=== PATIENT | female | born 1995 | race African-American/Black ===

== ENCOUNTER → 2018-06-23 | Outpatient (CLI) | payer OTHER | END | disposition home or self-care (01) | LOC: LABWHC1 14:38 | PROVIDERS: ATTEND Obstetrics & Gynecology | DX: Z34.81 Encounter for supervision of other normal pregnancy, first trimester (principal) | CPT/HCPCS: 36415; 84702 ==

== ENCOUNTER 2018-06-30 12:09 | Emergency (ER) | payer OTHER ==
[2018-06-30] MEDS ORDERED: SODIUM CHLORIDE 0.9% 500 ML IV STA (13:00)
[2018-06-30] MEDS ORDERED: SODIUM CHLORIDE 0.9% 1,000 ML IV STA (13:00)
[2018-06-30] MEDS ORDERED: PYRIDOXINE 100 MG/ML 1 ML VIAL IVP STA (13:00)
--- NOTE | 2018-06-30 13:09 | ED ---
Nausea/Vomiting/Diarrhea HPI - General Chief complaint: Nausea/Vomiting/Diarrhea Stated complaint: APX 6 WEEKS PREG, VOMITING Time Seen by Provider: 06/30/18 12:41 Source: patient Mode of arrival: ambulatory Limitations: no limitations - History of Present Illness Initial comments: 22-year-old female patient who is approximately 6 weeks presents to the emergency department today for complaints of vomiting. Patient states that she began vomiting at 10 PM last night and has had multiple episodes since then. Patient states initially the vomitus contained food particles but now is bilious. Patient states that she is having some upper abdominal muscle soreness. Denies any lower abdominal cramping or pain. Denies any vaginal bleeding or discharge. Patient denies any ingestion of questionable foods or recent travel. Denies any constipation or diarrhea with this. Patient is A1, has established with Dr. Segura. Patient denies any recent rash, fever, chills, shortness breath, chest pain, back pain, numbness, tingling, dizziness, weakness, hematuria, dysuria, urinary urgency, urinary frequency, headache, visual changes, or any other complaints. - Related Data Home Medications Medication Instructions Recorded Confirmed Rbs-Amzc-Eejnh Acid 1 cap PO HS 06/30/18 06/30/18 [-U Capsule (formulary)] Previous Rx's Medication Instructions Recorded Pyridoxine HCl (Vitamin B6) 100 mg PO HS #30 tablet 06/30/18 [Vitamin B-6] Allergies Allergy/AdvReac Type Severity Reaction Status Date / Time No Known Drug Allergies Allergy Unknown Verified 06/30/18 13:34 Review of Systems ROS Statement: Those systems with pertinent positive or pertinent negative responses have been documented in the HPI. ROS Other: All systems not noted in ROS Statement are negative. Past Medical History Past Medical History: No Reported History History of Any Multi-Drug Resistant Organisms: None Reported Past Surgical History: No Surgical Hx Reported Past Psychological History: No Psychological Hx Reported Smoking Status: Never smoker Past Alcohol Use History: None Reported Past Drug Use History: None Reported General Exam Limitations: no limitations General appearance: alert, in no apparent distress, other (This is a well- developed, well-nourished adult female patient in no acute distress. Vital signs upon presentation are temperature 98.5F, pulse 79, respirations 18, blood pressure 111/62, pulse ox 97% on room air.) Eye exam: Present: normal appearance, PERRL, EOMI. Absent: scleral icterus, conjunctival injection, periorbital swelling ENT exam: Present: normal exam, normal oropharynx, mucous membranes moist Respiratory exam: Present: normal lung sounds bilaterally. Absent: respiratory distress, wheezes, rales, rhonchi, stridor Cardiovascular Exam: Present: regular rate, normal rhythm, normal heart sounds. Absent: systolic murmur, diastolic murmur, rubs, gallop, clicks GI/Abdominal exam: Present: soft, normal bowel sounds. Absent: distended, tenderness, guarding, rebound, rigid Neurological exam: Present: alert, oriented X3, CN II-XII intact Psychiatric exam: Present: normal affect, normal mood Skin exam: Present: warm, dry, intact, normal color. Absent: rash Course Vital Signs 06/30/18 06/30/18 06/30/18 12:24 14:14 15:36 Temperature 98.5 F 98.2 F 97.9 F Pulse Rate 79 98 85 Respiratory 18 17 18 Rate Blood Pressure 111/62 95/54 99/56 O2 Sat by Pulse 97 100 100 Oximetry 06/30/18 15:42 Temperature 97.9 F Pulse Rate 85 Respiratory 18 Rate Blood Pressure 99/56 O2 Sat by Pulse 100 Oximetry Medical Decision Making - Medical Decision Making 22-year-old female patient presented to the emergency department today for evaluation of vomiting since 10 PM last night. Patient is 6 weeks . Physical examination is unremarkable, abdomen soft and nontender. Patient denies any lower abdominal pain or cramping. Labs reviewed and did reveal an elevated white blood cell count at 13.4. Urinalysis did show cloudy appearance with 1+ protein, 4+ ketones, positive nitrite, 8 white blood cells, 6 squamous epithelial cells, few bacteria, and many mucus. Patient did receive IV fluids equal to 1500 mL of normal saline here in the emergency department. She did receive vitamin B6, continued have some nausea so we did administer Reglan here in the department. Upon reevaluation patient is feeling better. She will be given up her prescription for vitamin B6 treated for urinary tract infection with Keflex. She is instructed to follow-up with her [employer]M D[employer] for recheck as soon as possible. Return parameters were discussed in detail and she verbalizes understanding and agrees with this plan. - Lab Data Result diagrams: 06/30/18 13:08 06/30/18 13:08 Lab Results 06/30/18 06/30/18 06/30/18 Range/Units 13:08 13:08 13:17 WBC 13.4 H (4.0-11.0) k/uL RBC 4.58 (3.80-5.40) m/uL Hgb 13.2 (11.4-16.0) gm/dL Hct 41.2 (34.0-46.0) % MCV 89.9 (80.0-100.0) fL MCH 28.8 (25.0-35.0) pg MCHC 32.1 (31.0-37.0) g/dL RDW 13.7 (11.5-15.5) % Plt Count 272 (150-450) k/uL Neutrophils % 83 % Lymphocytes % 11 % Monocytes % 3 % Eosinophils % 1 % Basophils % 0 % Neutrophils # 11.1 H (1.3-7.7) k/uL Lymphocytes # 1.5 (1.0-4.8) k/uL Monocytes # 0.4 (0-1.0) k/uL Eosinophils # 0.2 (0-0.7) k/uL Basophils # 0.0 (0-0.2) k/uL Sodium 140 (137-145) mmol/L Potassium 3.7 (3.5-5.1) mmol/L Chloride 104 (98-107) mmol/L Carbon Dioxide 22 (22-30) mmol/L Anion Gap 14 mmol/L BUN 9 (7-17) mg/dL Creatinine 0.54 (0.52-1.04) mg/dL Est GFR (CKD-EPI)AfAm >90 (>60 ml/min/1.73 sqM) Est GFR (CKD-EPI)NonAf >90 (>60 ml/min/1.73 sqM) Glucose 73 L (74-99) mg/dL Calcium 9.2 (8.4-10.2) mg/dL Total Bilirubin 0.7 (0.2-1.3) mg/dL AST 21 (14-36) U/L ALT 11 (9-52) U/L Alkaline Phosphatase 46 (38-126) U/L Total Protein 7.7 (6.3-8.2) g/dL Albumin 4.5 (3.5-5.0) g/dL Amylase 60 (30-110) U/L Lipase 80 (23-300) U/L Urine Color Yellow Urine Appearance Cloudy H (Clear) Urine pH 6.0 (5.0-8.0) Ur Specific [place] 1.025 (1.001-1.035) Urine Protein 1+ H (Negative) Urine Glucose (UA) Negative (Negative) Urine Ketones 4+ H (Negative) Urine Blood Negative (Negative) Urine Nitrite Positive H (Negative) Urine Bilirubin Negative (Negative) Urine Urobilinogen <2.0 (<2.0) mg/dL Ur Leukocyte Esterase Negative (Negative) Urine RBC <1 (0-5) /hpf Urine WBC 8 H (0-5) /hpf Ur Squamous Epith Cells 6 H (0-4) /hpf Urine Bacteria Few H (None) /hpf Urine Mucus Many H (None) /hpf Disposition Clinical Impression: Morning sickness Disposition: HOME SELF-CARE Condition: Good Instructions: Nausea and Vomiting in (ED) Additional Instructions: 22-year-old female patient presents to the emergency department today for evaluation of nausea and vomiting since last night around 10 PM. Physical examination is unremarkable. Abdomen was soft and nontender. Labs reviewed and were unremarkable however urinalysis did show 4+ ketones and nitrite positive urinary tract infection. We did culture the urine. She will be treated with Keflex for this. She'll be given a prescription for vitamin B6 to take at night before bed. She is instructed to follow-up with her [employer]M D[employer]TER for recheck as soon as possible. Return parameters were discussed in detail. She verbalizes understanding and agrees with this plan. Prescriptions: Pyridoxine HCl (Vitamin B6) [Vitamin B-6] 100 mg PO HS #30 tablet Is patient prescribed a controlled substance at d/c from ED?: No Referrals: Rosalino Thurston MD [Primary Care Provider] - 1-2 days Rishi Segura DO [Doctor of Osteopathic Medicine] - 1-2 days Time of Disposition: 14:38
[2018-06-30 13:22] LABS: Basophils % (A) 0 %; Eosinophils # (A) 0.2 k/uL (0-0.7); Eosinophils % (A) 1 %; HCT 41.2 % (34.0-46.0); HGB 13.2 gm/dL (11.4-16.0); Lymphocytes # (A) 1.5 k/uL (1.0-4.8); Lymphocytes % (A) 11 %; MCH 28.8 pg (25.0-35.0); MCHC 32.1 g/dL (31.0-37.0); MCV 89.9 fL (80.0-100.0); Monocytes # (A) 0.4 k/uL (0-1.0); Monocytes % (A) 3 %; Neutrophils # (A) 11.1 k/uL (1.3-7.7); Neutrophils % (A) 83 %; Platelet Count 272 k/uL (150-450); RBC 4.58 m/uL (3.80-5.40); RDW 13.7 % (11.5-15.5); WBC 13.4 k/uL (4.0-11.0)
[2018-06-30 13:28] LABS: ALT 11 U/L (9-52); AST 21 U/L (14-36); Albumin 4.5 g/dL (3.5-5.0); Alkaline Phosphatase 46 U/L (38-126); Amylase 60 U/L (30-110); Anion Gap 14 mmol/L; Blood Urea Nitrogen 9 mg/dL (7-17); Calcium 9.2 mg/dL (8.4-10.2); Carbon Dioxide 22 mmol/L (22-30); Chloride 104 mmol/L (98-107); Glucose 73 mg/dL (74-99); Lipase 80 U/L (23-300); Potassium 3.7 mmol/L (3.5-5.1); Sodium 140 mmol/L (137-145); Total Bilirubin 0.7 mg/dL (0.2-1.3); Total Protein 7.7 g/dL (6.3-8.2)
[2018-06-30 13:32] LABS: Appearance,Urine Cloudy (Clear); Bacteria,Urine Few /hpf; Bilirubin,Urine Negative (Negative); Blood,Urine Negative (Negative); Color,Urine Yellow; Glucose,Urine (UA) Negative (Negative); Ketones,Urine 4+ (Negative); Leukocyte Esterase,Urine Negative (Negative); Mucus,Urine Many /hpf; Nitrite,Urine Positive (Negative); Protein,Urine 1+ (Negative); RBC,Urine <1 /hpf (0-5); Specific Gravity,Urine 1.025 (1.001-1.035); Squamous Epithelial Cell,Urine 6 /hpf (0-4); Urobilinogen,Urine <2.0 mg/dL (<2.0); WBC,Urine 8 /hpf (0-5)
[2018-06-30] MEDS ORDERED: CEPHALEXIN 500 MG CAP PO STA (13:54)
[2018-06-30] MEDS ORDERED: METOCLOPRAMIDE 5 MG/ML 2 ML VIAL IVP STA (14:02)
[2018-06-30] MEDS ORDERED: diphenhydrAMINE 50 MG/ML 1 ML VIAL IVP STA (14:02)
[2018-06-30 15:37] VITALS: BP 99/56; PULSE 85; RESP 18; TEMP 97.9
== END 2018-06-30 15:42 | disposition home or self-care (01) ==
LOC: EC 12:09
DX: O21.9 Vomiting of pregnancy, unspecified (principal); O23.41 Unspecified infection of urinary tract in pregnancy, first trimester; O99.111 Other diseases of the blood and blood-forming organs and certain disorders involving the immune mechanism complicating pregnancy, first trimester; D72.829 Elevated white blood cell count, unspecified; Z3A.01 Less than 8 weeks gestation of pregnancy
CPT/HCPCS: 36415; 80053; 82150; 83690; 85025; 81001; 87086; 99284; 96374; 96375 ×2; 96361 ×2; J1200; J3415; J2765

== ENCOUNTER → 2018-07-17 | Outpatient (CLI) | payer OTHER ==
--- NOTE | 2018-07-20 13:32 | US ---
EXAMINATION TYPE: Transabdominal DATE OF EXAM: 01/13/18 COMPARISON: NONE CLINICAL HISTORY: Z36 Confirm Dates. EXAM PERFORMED: Transabdominal (TA) EXAM MEASUREMENTS: GESTATIONAL AGE / DATING Physician Established: Not yet established Dates by LMP: LMP unknown Dates by First Scan: No previous this is first scan EDC: Dates by Current Scan for: (8 weeks/1 days) EDC: 02/25/19 MATERNAL ANATOMY Uterus: 9.6 x 6.4 x 6.1cm Right Ovary: 3.7 x 1.4 x 1.7c, Left Ovary: 3.2 x 2.0 x 1.9 Post CDS / Adnexa: wnl Presence of free fluid: small amount in cul de sac GESTATION / SURVEY CRL: 1.7 (8 weeks/ 1 days) Yolk Sac (normal less than 6mm): 3mm Heart Rate: 170 bpm Rhythm: Normal IUP: Live IUP Date of LMP: unknown Beta HcG (if available): Not available at this time IMPRESSION: Single live intrauterine with a heart rate of 170 bpm and sonographic age of 8 weeks and 1 day with estimated date of delivery of 02/25/2019.
== END | disposition home or self-care (01) ==
LOC: RADUSWWP 14:57
PROVIDERS: ATTEND Obstetrics & Gynecology
DX: Z36.89 Encounter for other specified antenatal screening (principal)
CPT/HCPCS: 76801

== ENCOUNTER → 2018-09-07 | Outpatient (CLI) | payer OTHER ==
[2018-09-07 12:09] LABS: HGB 12.1 gm/dL (11.4-16.0); MCH 29.9 pg (25.0-35.0); MCHC 32.6 g/dL (31.0-37.0); MCV 91.6 fL (80.0-100.0); Mean Platelet Volume 7.3; Platelet Count 198 k/uL (150-450); RBC 4.04 m/uL (3.80-5.40); RDW 13.7 % (11.5-15.5); WBC 10.5 k/uL (3.8-10.6)
[2018-09-07 12:25] LABS: Appearance,Urine Clear (Clear); Bilirubin,Urine Negative (Negative); Blood,Urine Negative (Negative); Color,Urine Yellow; Glucose,Urine (UA) Negative (Negative); Ketones,Urine Negative (Negative); Leukocyte Esterase,Urine Negative (Negative); Nitrite,Urine Negative (Negative); Protein,Urine Negative (Negative); Specific Gravity,Urine 1.015 (1.001-1.035); Urobilinogen,Urine <2.0 mg/dL (<2.0)
[2018-09-07 17:15] LABS: HIV 1 AB Non-Reactive (Non-Reactive); HIV AB P24 Non-Reactive (Non-Reactive); HIV P24 AG Non-Reactive (Non-Reactive)
[2018-09-08 02:17] LABS: Toxoplasma Antibody (IgG) <3.0 IU/mL (<7.2); Toxoplasma Antibody (IgM) 4.1 AU/mL (<8.0)
[2018-09-08 13:06] LABS: C. trachomatis,PCR Negative (Neg,Equiv); Chlamydia trachomatis Source Urine; N. gonorrhoeae,PCR Negative (Neg,Equiv); Neisseria Source Urine
== END | disposition home or self-care (01) ==
LOC: LABWHC1 10:59
PROVIDERS: ATTEND Obstetrics & Gynecology
DX: Z34.81 Encounter for supervision of other normal pregnancy, first trimester (principal); Z3A.00 Weeks of gestation of pregnancy not specified
CPT/HCPCS: 36415; 81003; 82565; 82947; 85027; 86762; 86777; 86778; 86780; 86850; 86900; 86901; 87086; 87340; 87390; 87491; 87591

== ENCOUNTER → 2018-09-16 | Outpatient (CLI) | payer OTHER ==
[2018-09-17 09:49] LABS: Alpha Fetoprotein (M.O.M) 0.85; B-HCG (M.O.M.) 0.86; Gestational Age (days) 3; Human Chorionic Gonadotropin 24.7 IU/mL; Inhibin A (M.O.M.) 1.26; Maternal Age at EDD (Yrs) 21; Smoker No; Unconjugated Estriol (M.O.M.) 1.11
== END | disposition home or self-care (01) ==
LOC: LABWHC1 11:31
PROVIDERS: ATTEND Obstetrics & Gynecology
DX: Z34.02 Encounter for supervision of normal first pregnancy, second trimester (principal); Z3A.00 Weeks of gestation of pregnancy not specified
CPT/HCPCS: 36415; 82105; 82677; 84702; 86336

== ENCOUNTER 2019-02-15 06:00 | Inpatient (IN) | payer OTHER ==
[2019-02-15] MEDS ORDERED: LIDOCAINE 0.5% (PF) 5 MG/ML (50 ML SDV) SQ PRN (07:19)
[2019-02-15] MEDS ORDERED: TERBUTALINE 1 MG/ML VIAL SQ PRN (07:19)
[2019-02-15] MEDS ORDERED: METHYLERGONOVINE 0.2 MG/ML 1 ML AMP IM PRN (07:19)
[2019-02-15] MEDS ORDERED: CARBOPROST TROMETHAMINE 250 MCG/ML 1 ML AMP IM PRN (07:19)
[2019-02-15] MEDS ORDERED: OXYTOCIN 10 UNIT/ML 1 ML VIAL IM PRN (07:19)
[2019-02-15 07:25] VITALS: BMI 23.9
[2019-02-15] MEDS ORDERED: OXYTOCIN 30 UNITS/500 ML NS 30 UNIT in SALINE 1 500ML.BAG IV SCH (07:30)
[2019-02-15 07:37] LABS: Basophils % (A) 0 %; Eosinophils # (A) 0.1 k/uL (0-0.7); Eosinophils % (A) 1 %; HCT 32.3 % (34.0-46.0); HGB 10.2 gm/dL (11.4-16.0); Hypochromasia Marked; Lymphocytes # (A) 1.8 k/uL (1.0-4.8); Lymphocytes % (A) 22 %; MCH 25.1 pg (25.0-35.0); MCHC 31.5 g/dL (31.0-37.0); MCV 79.7 fL (80.0-100.0); Mean Platelet Volume 7.5; Monocytes # (A) 0.5 k/uL (0-1.0); Monocytes % (A) 6 %; Neutrophils # (A) 5.2 k/uL (1.3-7.7); Neutrophils % (A) 67 %; Platelet Count 258 k/uL (150-450); RBC 4.06 m/uL (3.80-5.40); RDW 14.6 % (11.5-15.5); WBC 7.9 k/uL (3.8-10.6)
[2019-02-15] MEDS: LACTATED RINGERS 1,000 ML IV SCH ×4 (07:37→13:24)
[2019-02-15] MEDS ORDERED: fentaNYL (PF) 50 MCG/ML 5 ML AMP ONE (12:25)
[2019-02-15] MEDS ORDERED: ROPIVACAINE 5MG/ML 20ML VIAL ONE (12:25)
[2019-02-15] MEDS ORDERED: SODIUM CHLORIDE 0.9% 100 ML BAG ONE (12:25)
[2019-02-15] MEDS ORDERED: HYDROCORTISONE 2.5% RECTAL CREAM 30 GM TUBE RECTAL PRN (16:18)
[2019-02-15] MEDS ORDERED: BENZOCAINE/MENTHOL SPRAY 1 GM/SPRAY AEROSOL TOPICAL PRN (16:18)
[2019-02-15] MEDS ORDERED: SIMETHICONE 80 MG CHEWABLE PO PRN (16:18)
[2019-02-15] MEDS ORDERED: diphenhydrAMINE 25 MG CAP PO PRN (16:18)
[2019-02-15] MEDS ORDERED: diphenhydrAMINE 50 MG/ML 1 ML VIAL IVP PRN ×2 (16:18)
[2019-02-15] MEDS ORDERED: LANOLIN CREAM 5 GM TUBE TOPICAL PRN (16:18)
[2019-02-15] MEDS ORDERED: diphenhydrAMINE 50 MG CAP PO PRN (16:18)
[2019-02-15] MEDS ORDERED: WITCH HAZEL 1 EACH MED..PAD TOPICAL PRN (16:18)
[2019-02-15] MEDS ORDERED: ZOLPIDEM 5 MG TAB PO PRN (16:18)
[2019-02-15] MEDS ORDERED: ACETAMINOPHEN TAB 325 MG TAB PO PRN (16:18)
--- NOTE | 2019-02-15 16:21 | P.HPOB ---
History of Present Illness H&P Date: 02/15/19 Chief Complaint: Intrauterine at term Patient is a 23-year-old G 3 P1 at 39 weeks gestation arrives for induction of labor. Her Precis course has otherwise been unremarkable and she is feeling well at this time. She was initially dilated to 2 cm 50% effaced -2 station, artificial rupture membranes was performed and clear fluid is noted. There is category 1 tracing at the outset of the labor process. Pitocin augmentation of labor was planned and an epidural was planned for analgesia. Pertinent labs could O+ blood type with rubella being indeterminate, RPR/hepatitis B surface antigen/HIV were all negative. On physical exam vital signs are stable and afe brile. Heart regular, lungs clear, extremities without pain. Abdomen soft and nontender. Gravid uterus is noted. Assessment intrauterine at term. Plan induction of labor. Past Medical History Past Medical History: No Reported History History of Any Multi-Drug Resistant Organisms: None Reported Past Surgical History: No Surgical Hx Reported Past Anesthesia/Blood Transfusion Reactions: No Reported Reaction Past Psychological History: No Psychological Hx Reported Smoking Status: Never smoker Past Alcohol Use History: None Reported Past Drug Use History: None Reported - Past Family History Mother Family Medical History: No Reported History Medications and Allergies Home Medications Medication Instructions Recorded Confirmed Type Bbw-Tjwx-Ottfk Acid 1 cap PO HS 06/30/18 02/15/19 History [-U Capsule (formulary)] Allergies Allergy/AdvReac Type Severity Reaction Status Date / Time No Known Drug Allergies Allergy Unknown Verified 09/11/18 14:35 Exam Osteopathic Statement: *. No significant issues noted on an osteopathic structural exam other than those noted in the History and Physical/Consult. Vital Signs Temp Pulse Resp BP 02/15/19 07:08 98.4 F 73 16 115/69 Intake and Output 02/15/19 02/15/19 02/15/19 06:59 14:59 22:59 Other: Weight 61.235 kg Results Result Diagrams: 02/15/19 07:20 Abnormal Lab Results - Last 24 Hours (Table) 02/15/19 Range/Units 07:20 Hgb 10.2 L (11.4-16.0) gm/dL Hct 32.3 L (34.0-46.0) % MCV 79.7 L (80.0-100.0) fL
--- NOTE | 2019-02-15 16:22 | P.PROBDLV ---
Vaginal Delivery Note - . Vaginal Delivery Note: Patient progressed complete and pushing with spontaneous vaginal delivery of a viable male over an intact perineum. Baby was delivered from left occiput anterior position. Once baby's head was delivered the anterior shoulder was attempted to be delivered from underneath the pubic sepsis, however she at that point stopped pushing so I did place my fingers in the posterior vagina grasping underneath the axilla and helping to rotate the baby slightly under the pubic bone followed by easy delivery of the baby. Mouth nares were then bulb suctioned and baby was placed on mother's abdomen where the umbilical cord was clamped cut usual fashion. Nursery personnel was then present to assume care. Placenta was then delivered intact Pitocin was added to the IV. scores weight are pending, however baby is stable following delivery. Cord blood was collected for O+ blood type.
[2019-02-15] MEDS ORDERED: OXYTOCIN 20 UNITS/1000 ML NS 1,000 ML IV SCH (16:30)
[2019-02-15] MEDS: IBUPROFEN 600 MG TAB PO PRN (16:40)
[2019-02-15 19:24] VITALS: RESP 16
[2019-02-15] MEDS: SENNOSIDES-DOCUSATE SODIUM 1 EACH TAB PO SCH (20:50)
[2019-02-16] MEDS: IBUPROFEN 600 MG TAB PO PRN ×2 (03:10→12:23)
[2019-02-16] MEDS: SENNOSIDES-DOCUSATE SODIUM 1 EACH TAB PO SCH (07:58)
[2019-02-16] MEDS ORDERED: MEASLES-MUMPS-RUBELLA VACC/PF 12,500 UNIT/0.5 ML VIAL SQ ONE (08:07)
--- NOTE | 2019-02-16 08:28 | P.DS ---
Providers Date of admission: 02/15/19 07:03 Expected date of discharge: 02/16/19 Attending physician: Rishi Segura Primary care physician: Stated None Hospital Course: Patient is doing very well day 1. She is involuting, voiding, and she is tolerating her diet. She voices no complaint. Vital signs are stable and afebrile. Heart regular, lungs clear, extremities without pain. Abdomen soft uterus is firm and lochia is reported to be light. Assessment day 1. Land discharged home follow up with me in 6 weeks. Prescription for Motrin has been forwarded to her pharmacy. Patient Condition at Discharge: Good Plan - Discharge Summary New Discharge Prescriptions: New Ibuprofen [Motrin] 600 mg PO Q6HR PRN #30 tab PRN Reason: Pain No Action Ipf-Fhck-Azvmn Acid [-U Capsule (formulary)] 1 cap PO HS Discharge Medication List Tbs-Yfpn-Crvsn Acid [-U Capsule (formulary)] 1 cap PO HS 06/30/18 [History] Ibuprofen [Motrin] 600 mg PO Q6HR PRN #30 tab 02/16/19 [Rx] Follow up Appointment(s)/Referral(s): Rishi Segura DO [Doctor of Osteopathic Medicine] - 6 Weeks Activity/Diet/Wound Care/Special Instructions: No heavy lifting, limit stairs and driving, and pelvic rest. If any high temperatures, heavy bleeding, or severe pain call my office Discharge Disposition: HOME SELF-CARE
[2019-02-16] MEDS ORDERED: DIPH,PERTUS(ACELL)TETVAC-LF 0.5 ML VIAL IM ONE (12:34)
[2019-02-16 17:09] VITALS: BP 97/51; PULSE 63; TEMP 98.2
== END 2019-02-16 17:36 | disposition home or self-care (01) | DRG 807 ==
LOC: 4FBP 07:03
PROVIDERS: ADMIT Obstetrics & Gynecology; ATTEND Obstetrics & Gynecology
PROC: 10E0XZZ Delivery of Products of Conception, External Approach (ICD-10-PCS; principal; 2019-02-15)
PROC: 00HU33Z Insertion of Infusion Device into Spinal Canal, Percutaneous Approach (ICD-10-PCS; 2019-02-15)
PROC: 10907ZC Drainage of Amniotic Fluid, Therapeutic from Products of Conception, Via Natural or Artificial Opening (ICD-10-PCS; 2019-02-15)
PROC: 3E0R3BZ Introduction of Anesthetic Agent into Spinal Canal, Percutaneous Approach (ICD-10-PCS; 2019-02-15)
DX: O80 Encounter for full-term uncomplicated delivery (principal); Z37.0 Single live birth; Z3A.39 39 weeks gestation of pregnancy
CPT/HCPCS: 85025; 86850; 86900; 86901; 90707; 90715

== ENCOUNTER → 2020-10-25 | Outpatient (CLI) | payer OTHER ==
--- NOTE | 2020-10-25 12:13 | US ---
EXAMINATION TYPE: US OB <= 14 wk twins DATE OF EXAM: 10/25/2020 COMPARISON: NONE CLINICAL HISTORY: 25-year-old female Z36 Confirm dates. EXAM PERFORMED: Multiple transabdominal sonographic images of the pelvis are obtained. FINDINGS: EXAM MEASUREMENTS: GESTATIONAL AGE / DATING Physician Established: Not yet established Dates by LMP: LMP unknown Dates by First Scan: No previous this is first scan Dates by Current Scan for Baby A: (12 weeks/1 days) EDC: 05/08/2021 Dates by Current Scan for Baby B: (12 weeks/0 days) EDC: 05/09/2021 MATERNAL ANATOMY Uterus: 14.7 x 9.0 x 10.8cm Right Ovary: not visualized due to increasing uterine size/overlying bowel gas Left Ovary: not visualized due to increasing uterine size/overlying bowel gas Post CDS / Adnexa: wnl Presence of free fluid: no Presence of two separate gestational sacs: Twin peak sign seen compatible with diamniotic, dichorioni c . GESTATION / SURVEY TWIN A CRL: 5.3cm (12wks/1days) Yolk Sac (normal less than 6mm): 4mm Heart Rate: 158 bpm Rhythm: Normal IUP: Viable IUP TWIN B CRL: 5.2 (12wks/0days) Yolk Sac (normal less than 6mm): 4mm Heart Rate: 167 bpm Rhythm: Normal IUP: Viable IUP Date of LMP: unknown Beta HcG (if available): Not available at this time IMPRESSION: 1. Live twin gestations with gestational age of baby A 12 weeks 1 day and baby B 12 weeks 0 days by C RL. 2. membranes and 2 yolk sacs compatible with diamniotic, dichorionic . 3. Complete survey recommended at 18-20 weeks.
== END | disposition home or self-care (01) ==
LOC: RADUSWWP 10:35
PROVIDERS: ATTEND Obstetrics & Gynecology
DX: O30.009 Twin pregnancy, unspecified number of placenta and unspecified number of amniotic sacs, unspecified trimester (principal); Z36.89 Encounter for other specified antenatal screening; Z3A.12 12 weeks gestation of pregnancy
CPT/HCPCS: 76801; 76802

== ENCOUNTER 2021-03-07 15:12 | Outpatient (CLI) | payer OTHER ==
[2021-03-07] MEDS ORDERED: BETAMET ACET-BETAMETH SOD PHOS 6 MG/ML MDV IM SCH (15:45)
[2021-03-07 16:22] LABS: Basophils % (A) 0 %; Eosinophils # (A) 0.1 k/uL (0-0.7); Eosinophils % (A) 1 %; HCT 27.1 % (34.0-46.0); HGB 8.4 gm/dL (11.4-16.0); Hypochromasia Marked; Lymphocytes # (A) 1.8 k/uL (1.0-4.8); Lymphocytes % (A) 20 %; MCH 23.5 pg (25.0-35.0); MCHC 30.8 g/dL (31.0-37.0); MCV 76.4 fL (80.0-100.0); Mean Platelet Volume 8.6; Monocytes # (A) 0.5 k/uL (0-1.0); Monocytes % (A) 5 %; Neutrophils # (A) 6.5 k/uL (1.3-7.7); Neutrophils % (A) 72 %; Platelet Count 278 k/uL (150-450); Poikilocytosis Slight; RBC 3.55 m/uL (3.80-5.40); RDW 14.2 % (11.5-15.5)
== END 2021-03-07 16:40 | disposition home or self-care (01) ==
LOC: FBPOP 15:12
PROVIDERS: ATTEND Obstetrics & Gynecology
DX: Z34.83 Encounter for supervision of other normal pregnancy, third trimester (principal); O30.009 Twin pregnancy, unspecified number of placenta and unspecified number of amniotic sacs, unspecified trimester
CPT/HCPCS: 59025; 85025; J0702

== ENCOUNTER 2021-03-08 17:02 | Outpatient (CLI) | payer OTHER ==
[2021-03-08] MEDS ORDERED: BETAMET ACET-BETAMETH SOD PHOS 6 MG/ML MDV IM SCH (17:30)
== END 2021-03-08 17:45 | disposition home or self-care (01) ==
LOC: FBPOP 17:02
PROVIDERS: ATTEND Obstetrics & Gynecology
DX: O30.003 Twin pregnancy, unspecified number of placenta and unspecified number of amniotic sacs, third trimester (principal); Z3A.31 31 weeks gestation of pregnancy
CPT/HCPCS: 96372; J0702

== ENCOUNTER 2021-03-27 10:31 | Outpatient (CLI) | payer OTHER ==
[2021-03-27 11:07] VITALS: BP 101/64; PULSE 88; RESP 16; TEMP 98.3
--- NOTE | 2021-03-31 07:33 | P.MSEPDOC ---
Presenting Problems - Arrival Data Date of Arrival on Unit: 03/27/21 Time of Arrival on Unit: 10:31 Mode of Transport: Ambulatory - Complaint OB-Reason for Admission/Chief Complaint: NST Medical History - Information : 4 Para: 2 Term: 2 : 0 Abortions: Spontaneous or Elective: 0 Number of Living Children: 2 - Gestational Age Gestational Age by SANDRITA (wks/days): 33 Weeks and 6 Days - History Complications: Multiple Review of Systems - Review of Systems Constitutional: No problems Breast: No problems ENT: No problems Cardiovascular: No problems Respiratory: No problems Gastrointestinal: No problems Genitourinary: No problems Musculoskeletal: No problems Neurological: No problems Skin: No problems Vital Signs - Temperature Temperature: 98.3 F Temperature Source: Temporal Artery Scan - Pulse Right Sitting Brachial Pulse Rate: 88 Pulse Assessment Method: Automatic Cuff - Respirations Respiratory Rate: 16 O2 Sat by Pulse Oximetry: 100 - Blood Pressure Right Arm Blood Pressure: 101/64 Blood Pressure Mean: 76 Blood Pressure Source: Automatic Cuff Medical Screen Scoring - Assessment - Baby A Baseline FHR: 130 Heart Rate - NICHD Category: Category I (Normal) NST: Reactive - Assessment - Baby B Baseline FHR: 130 Heart Rate - NICHD Category: Category I (Normal) NST: Reactive Physician Notification - Physician Notified Physician Notified Date: 03/27/21 Physician Notified Time: 10:56 Physician: Michell Arciniega Order Received: Yes (discharge, keep appt with Dr Segura tomorrow) Maternal Triage Index - Maternal Triage Index Presenting for scheduled procedure w/no complaint: Yes - Scheduled/Requesting Priority 5 Scheduled/Requesting Priority 5: Yes Criteria Met for Priority 5: twin NST Disposition - Disposition OB Disposition: Discharge to home, Written follow up instructions reviewed Discharge Date: 03/27/21 Discharge Time: 11:00 I agree with the RN Medical Screening Exam: Yes Case reviewed; plan agreed upon as documented in EMR&OBIX.: Yes Diagnosis: TWIN , DICHORIONIC/DIAMNIOTIC, THIRD TRIMESTER
== END 2021-03-27 11:05 | disposition home or self-care (01) ==
LOC: FBPOP 10:31
PROVIDERS: ATTEND Obstetrics & Gynecology
DX: O30.043 Twin pregnancy, dichorionic/diamniotic, third trimester (principal); Z3A.33 33 weeks gestation of pregnancy
CPT/HCPCS: 59025; G0463; 99213

== ENCOUNTER 2021-04-03 09:25 | Outpatient (CLI) | payer OTHER ==
[2021-04-03 09:49] VITALS: BP 93/54; PULSE 81; RESP 16; TEMP 97
--- NOTE | 2021-04-03 11:03 | US ---
EXAMINATION TYPE: US OB >= 14 wk twins DATE OF EXAM: 04/03/2021 COMPARISON: US 10/25/20 CLINICAL HISTORY: twin gestation, GEETHA, position, EFW . GESTATIONAL AGE / DATING Physician Established: (35 weeks/0 days) EDC: 05/02/21 Dates by LMP: Unknown LMP Dates by First Scan: (36 weeks/0 days) EDC: 05/08/21 Dates by Current Scan for Baby A: (35 weeks/1 days) EDC: 05/07/21 Dates by Current Scan for Baby B: (35 weeks/2 days) EDC: 05/06/21 GENERAL TWIN SURVEY TWIN A LOCATION in regards to maternal abd: head down, on maternal left TWIN B LOCATION in regards to maternal abd: head down, on maternal right, posterior to baby A MEMBRANE SEEN: Yes CERVICAL LENGTH (transabdominal; norm > 3.0cm): 4.5 cm TWIN A: SURVEY/BIOMETRY PLACENTA: Anterior PREVIA: No previa GEETHA:? 16 cm?Normal PRESENTATION: Vertex LIE: Longitudinal BPD: 9.1 cm 37 weeks / 0 days HC: 31.0 cm 34 weeks / 5 days AC: 29.9 cm 34 weeks / 0 days FL: 6.7 cm 34 weeks / 4 days ESTIMATED WEIGHT IN GRAMS: 2428 grams ESTIMATED WEIGHT IN LBS/OZS: 5 lbs. 6 oz. WEIGHT PERCENTAGE BASED ON ESTABLISHED DATES: 31% HC/AC: 1.04 Normal FL/AC: 22 Normal HEART RATE: 139 bpm RHYTHM: Normal TWIN B: SURVEY/BIOMETRY PRESENTATION: Vertex LIE: Oblique BPD: 8.7 cm 35 weeks / 0 days HC: 30.9 cm 34 weeks / 4 days AC: 33.0 cm 37 weeks / 0 days FL: 6.6 cm 34 weeks / 1 days ESTIMATED WEIGHT IN GRAMS: 2748 grams ESTIMATED WEIGHT IN LBS/OZS: 6 lbs. 1 oz. WEIGHT PERCENTAGE BASED ON ESTABLISHED DATES: 68% HC/AC: 0.9 Normal FL/AC: 20 Normal HEART RATE: 150 bpm RHYTHM: Normal This is not an anatomic survey. IMPRESSION: Bilateral twin with gestational age measuring 35 weeks and 1-2 days by sonographic criteria .
== END 2021-04-03 11:10 | disposition home or self-care (01) ==
LOC: FBPOP 09:25
PROVIDERS: ATTEND Obstetrics & Gynecology
DX: O30.003 Twin pregnancy, unspecified number of placenta and unspecified number of amniotic sacs, third trimester (principal); Z3A.35 35 weeks gestation of pregnancy
CPT/HCPCS: 59020; 76805; 76810

== ENCOUNTER 2021-04-05 17:16 | Outpatient (CLI) | payer OTHER ==
[2021-04-05 18:48] LABS: Protein/Creatinine Ratio,Urine 0.077
[2021-04-05 18:50] LABS: Creatinine,Urine Random 211.5 mg/dL
[2021-04-05 19:22] LABS: Appearance,Urine Clear (Clear); Bacteria,Urine Rare /hpf; Bilirubin,Urine Negative (Negative); Blood,Urine Negative (Negative); Color,Urine Yellow; Glucose,Urine (UA) Negative (Negative); Ketones,Urine Trace (Negative); Leukocyte Esterase,Urine Trace (Negative); Mucus,Urine Moderate /hpf; Nitrite,Urine Negative (Negative); PH, Urine 6.5 (5.0-8.0); Protein,Urine 1+ (Negative); RBC,Urine <1 /hpf (0-5); Specific Gravity,Urine 1.026 (1.001-1.035); Squamous Epithelial Cell,Urine 2 /hpf (0-4); WBC,Urine 6 /hpf (0-5)
[2021-04-05 19:33] LABS: Basophils % (A) 0 %; Eosinophils # (A) 0.2 k/uL (0-0.7); Eosinophils % (A) 2 %; HCT 26.9 % (34.0-46.0); HGB 8.2 gm/dL (11.4-16.0); Hypochromasia Marked; Lymphocytes # (A) 1.3 k/uL (1.0-4.8); Lymphocytes % (A) 16 %; MCHC 30.7 g/dL (31.0-37.0); MCV 71.6 fL (80.0-100.0); Mean Platelet Volume 8.4; Microcytosis Moderate; Monocytes # (A) 0.4 k/uL (0-1.0); Monocytes % (A) 5 %; Neutrophils # (A) 6.4 k/uL (1.3-7.7); Neutrophils % (A) 74 %; Platelet Count 330 k/uL (150-450); Poikilocytosis Slight; RBC 3.75 m/uL (3.80-5.40); RDW 15.6 % (11.5-15.5); WBC 8.6 k/uL (3.8-10.6)
[2021-04-05 19:36] LABS: ALT 11 U/L (4-34); AST 29 U/L (14-36); African American GFR (CKD) >90 (>60 ml/min/1.73 sqM); Blood Urea Nitrogen 6 mg/dL (7-17); LDH 442 U/L (313-618); Non-African American GFR(CKD) >90 (>60 ml/min/1.73 sqM); Uric Acid 4.5 mg/dL (3.7-7.4)
[2021-04-05 20:15] VITALS: BP 142/60; PULSE 113; RESP 16; TEMP 99.5
--- NOTE | 2021-04-06 01:02 | P.MSEPDOC ---
Presenting Problems - Arrival Data Date of Arrival on Unit: 04/05/21 Time of Arrival on Unit: 17:20 Mode of Transport: Ambulatory - Complaint OB-Reason for Admission/Chief Complaint: Pain, Other Comment: pt arrived c/o numbness in legs and states her b/p has been low and pt just. uncomfortable with this Medical History - Information : 4 Para: 3 Term: 3 : 0 Abortions: Spontaneous or Elective: 0 Number of Living Children: 3 - Gestational Age Gestational Age by SANDRITA (wks/days): 35 Weeks and 1 Days - History Complications: Multiple Review of Systems - Review of Systems Constitutional: No problems Breast: No problems ENT: No problems Cardiovascular: No problems Respiratory: No problems Gastrointestinal: No problems Genitourinary: No problems Musculoskeletal: No problems Neurological: No problems Skin: No problems Vital Signs - Temperature Temperature: 99.5 F Temperature Source: Oral - Pulse Pulse Oximetery Pulse Rate: 113 Pulse Assessment Method: Pulse Oximetry - Respirations Respiratory Rate: 16 Oxygen Delivery Method: Room Air O2 Sat by Pulse Oximetry: 99 - Blood Pressure Sitting Blood Pressure: 142/60 Blood Pressure Mean: 87 Blood Pressure Source: Automatic Cuff Medical Screen Scoring - Cervical Exam Dilation (cm): 1 Effacement (%): 0 Station: -2 Membranes: Intact - Uterine Contractions Resting: Soft to palpation - Assessment - Baby A Baseline FHR: 135 Heart Rate - NICHD Category: Category I (Normal) NST: Reactive - Assessment - Baby B Baseline FHR: 135 Heart Rate - NICHD Category: Category I (Normal) NST: Reactive Physician Notification - Physician Notified Physician Notified Date: 04/05/21 Physician Notified Time: 18:17 Physician: Michell Arciniega New Order Received: Yes - Notification Comment Comment: Orders given to collect PIH labs and call physician with report. At 1943 Labs reported to physician orders given to discharge patient home with instructions patient to follow up with Dr. Segura on Friday. Maternal Triage Index - Prompt/Priority 3 Prompt Priority 3: Yes Criteria Met for Priority 3: presents with initial blood pressure reading of 142/60 and is pregannt with Twins. Disposition - Disposition OB Disposition: Discharge to home, Written follow up instructions reviewed Discharge Date: 04/05/21 Discharge Time: 19:49 I agree with the RN Medical Screening Exam: Yes Case reviewed; plan agreed upon as documented in EMR&OBIX.: Yes Diagnosis: RELATED CONDITIONS, UNSPECIFIED, THIRD TRIMESTER Additional Diagnoses: Twin gestation at 35 weeks
== END 2021-04-05 19:49 | disposition home or self-care (01) ==
LOC: FBPOP 17:16
PROVIDERS: ATTEND Obstetrics & Gynecology
DX: O26.893 Other specified pregnancy related conditions, third trimester (principal); O30.003 Twin pregnancy, unspecified number of placenta and unspecified number of amniotic sacs, third trimester; R20.0 Anesthesia of skin; Z3A.35 35 weeks gestation of pregnancy
CPT/HCPCS: 59025; 82570; 84156; 82565; 83615; 84450; 84460; 84520; 84550; 85025; 81001; G0463; 99215

== ENCOUNTER 2021-04-18 06:00 | Inpatient (IN) | payer OTHER ==
[2021-04-18] MEDS ORDERED: TERBUTALINE 1 MG/ML VIAL SQ PRN (06:43)
[2021-04-18] MEDS ORDERED: CARBOPROST TROMETHAMINE 250 MCG/ML 1 ML AMP IM PRN (06:43)
[2021-04-18] MEDS ORDERED: LIDOCAINE 0.5% (PF) 5 MG/ML (50 ML SDV) SQ PRN (06:43)
[2021-04-18] MEDS ORDERED: METHYLERGONOVINE 0.2 MG/ML 1 ML AMP IM PRN (06:43)
[2021-04-18] MEDS ORDERED: OXYTOCIN 10 UNIT/ML 1 ML VIAL IM PRN (06:43)
[2021-04-18] MEDS: OXYTOCIN 30 UNITS/500 ML NS 30 UNIT in SALINE 1 500ML.BAG IV SCH ×2 (07:06→13:27)
[2021-04-18] MEDS: LACTATED RINGERS 1,000 ML IV SCH ×4 (07:06→17:53)
[2021-04-18] MEDS ORDERED: CITRIC ACID-SODIUM CITRATE 15 ML CUP PO ONE (08:47)
--- NOTE | 2021-04-18 08:57 | P.HPOB ---
History of Present Illness H&P Date: 04/18/21 Chief Complaint: Intrauterine at term: Twins Patient is a 25-year-old with twin gestation dye chorionic diamniotic by ultrasound. She's been followed closely through the and has seen maternal medicine. On her last ultrasound baby was were noted to be vertex vertex and the plan was induction of labor. However, this morning prior to induction an ultrasound was performed showing baby A was vertex, but baby B was oblique with the head down but hyper extended not flexed. We did discuss the choice of trying to do an induction but with the understanding there is a significantly high risk but baby B would collar turner operator of the pelvis and abdomen in an emergency section due to positioning versus proceeding with a primary section which is what she and her family have opted to do. Risks/benefits/alternatives were again reviewed with patient in detail and did include but were not limited to bleeding and infection, damage to bladder or bowel, vascular injuries, nerve injuries, ureteral injuries. All questions are answered prior to proceeding to the operative room. She is otherwise stable and category 1 tracings are noted for both babies. Past Medical History Past Medical History: No Reported History History of Any Multi-Drug Resistant Organisms: None Reported Past Surgical History: No Surgical Hx Reported Past Anesthesia/Blood Transfusion Reactions: No Reported Reaction Past Psychological History: No Psychological Hx Reported Smoking Status: Never smoker Past Alcohol Use History: None Reported Past Drug Use History: None Reported - Past Family History Mother Family Medical History: No Reported History Medications and Allergies Allergies Allergy/AdvReac Type Severity Reaction Status Date / Time No Known Drug Allergies Allergy Unknown Verified 04/18/21 06:42 Exam Osteopathic Statement: *. No significant issues noted on an osteopathic structural exam other than those noted in the History and Physical/Consult. Vital Signs Temp Pulse Resp BP 04/18/21 06:45 98.1 F 76 16 119/61 Intake and Output 04/17/21 04/18/21 04/18/21 22:59 06:59 14:59 Other: Weight 63.957 kg - OBG Physical Exam Breast: both: normal (no masses) Abdomen: bowel sounds normal, no diffuse tenderness, no bruit present, no guarding noted, no hepatomegaly, no splenomegaly, no mass Vulva: both: normal Vagina: normal moisture, no discharge Cervix: no lesion, no discharge Uterus: normal size, normal contour Adnexa: both: normal Anus/Rectum: normal perianal skin, no rectal mass, no hemorrhoids, heme negative
--- NOTE | 2021-04-18 09:25 | US ---
EXAMINATION TYPE: US OB >= 14 wk twins LIMITED US FOR POSITION DATE OF EXAM: 04/18/2021 COMPARISON: US CLINICAL HISTORY: position. Twin gestation being induced today; GESTATIONAL AGE / DATING Physician Established: (37 weeks/1 day) EDC: 05/08/2021 GENERAL TWIN SURVEY FOR POSITION: CERVICAL LENGTH (transabdominal; norm > 3.0cm): 5.0 cm TWIN A: SURVEY PRESENTATION: Cephalic maternal left LIE: long maternal left HEART RATE: 133 bpm RHYTHM: Normal TWIN B: SURVEY/BIOMETRY PRESENTATION: cephalic maternal right LIE: oblique maternal right HEART RATE: 136 bpm RHYTHM: Normal Dr Segura was at patient's bedside to observe US for Twin Positions. IMPRESSION: 1. Twin gestation. Twin A is cephalic maternal left. heart rate is 133 bpm Twin B is cephalic m aternal right. heart rate is 136 bpm.
[2021-04-18 10:38] LABS: Basophils % (A) 0 %; Eosinophils # (A) 0.1 k/uL (0-0.7); Eosinophils % (A) 1 %; HCT 24.9 % (34.0-46.0); HGB 7.6 gm/dL (11.4-16.0); Hypochromasia Marked; Lymphocytes # (A) 1.9 k/uL (1.0-4.8); Lymphocytes % (A) 20 %; MCH 21.2 pg (25.0-35.0); MCHC 30.5 g/dL (31.0-37.0); MCV 69.7 fL (80.0-100.0); Mean Platelet Volume 7.8; Microcytosis Marked; Monocytes # (A) 0.5 k/uL (0-1.0); Monocytes % (A) 5 %; Neutrophils # (A) 7.1 k/uL (1.3-7.7); Neutrophils % (A) 72 %; Platelet Count 266 k/uL (150-450); Poikilocytosis Moderate; RBC 3.57 m/uL (3.80-5.40); RDW 15.9 % (11.5-15.5); WBC 9.8 k/uL (3.8-10.6)
[2021-04-18] MEDS ORDERED: MIDAZOLAM 2 MG/2 ML VIAL ONE (12:31)
[2021-04-18] MEDS ORDERED: fentaNYL (PF) 50 MCG/ML 2 ML AMP ONE (12:31)
[2021-04-18] MEDS ORDERED: ONDANSETRON 4 MG/2 ML VIAL ONE (12:31)
[2021-04-18] MEDS ORDERED: ePHEDrine SULFATE/0.9% NACL/PF 50 MG/5 ML SYRINGE IV ONE (12:31)
[2021-04-18] MEDS ORDERED: NALBUPHINE 10 MG/ML (1 ML AMP) ONE (12:31)
[2021-04-18] MEDS ORDERED: KETOROLAC 15 MG/ML 1 ML VIAL ONE (12:31)
[2021-04-18] MEDS ORDERED: MORPHINE SULFATE (PF) 0.3 MG/0.3 ML SYR ONE (12:31)
[2021-04-18] MEDS ORDERED: OXYTOCIN 30 UNITS/500 ML NS BAG IV ONE (12:31)
[2021-04-18] MEDS ORDERED: NALOXONE 0.4 MG/ML 1 ML VIAL IV PRN (13:06)
[2021-04-18] MEDS ORDERED: diphenhydrAMINE 50 MG/ML 1 ML VIAL IVP PRN ×2 (13:06)
[2021-04-18] MEDS ORDERED: diphenhydrAMINE 25 MG CAP PO PRN (13:06)
[2021-04-18] MEDS ORDERED: diphenhydrAMINE 50 MG CAP PO PRN (13:06)
[2021-04-18] MEDS ORDERED: METOCLOPRAMIDE 5 MG/ML 2 ML VIAL IVP PRN (13:06)
[2021-04-18] MEDS ORDERED: ZOLPIDEM 5 MG TAB PO PRN (13:06)
[2021-04-18] MEDS ORDERED: ONDANSETRON 4 MG/2 ML VIAL IVP PRN (13:06)
--- NOTE | 2021-04-18 13:13 | P.OP ---
Date of Procedure: 04/18/21 Preoperative Diagnosis: Intrauterine at term with twins: Malposition baby B Postoperative Diagnosis: Same Procedure(s) Performed: Primary low transverse section Anesthesia: spinal Surgeon: Rishi Segura Tape Librarian #1: Bridger Sage Estimated Blood Loss (ml): 580 IV fluids (ml): 500 Urine output (ml): 50 Pathology: other (Placenta) Condition: stable Disposition: floor Operative Findings: Twin the baby girls scores and weight are pending as both babies went to special care nursery Description of Procedure: Patient was taken to the operating suite where a spinal anesthetic was found be adequate. She was prepped and draped in the normal sterile fashion and placed in the dorsal supine position with leftward tilt. Initially a Pfannenstiel skin incision was made and this incision was then carried through to the underlying layer of the fascia with the second knife. Fascia was then nicked in the midline and this opening was extended laterally with Layne scissors. Superior and inferior aspect of this incision were then grasped tented up and bluntly and sharply dissected off the rectus muscles. Rectus muscles were then divided midline and blunt dissection through the peritoneum was performed. This opening was then extended superiorly and inferiorly with good visualization of both bowel bladder. Bladder blade was then placed and bladder flap identified. It was entered sharply with Metzenbaum scissors carried across face uterus bladder flap then digitally dissected out of the operative field. Knife was then used to incise uterus. This opening was then fully developed with hemostat and then extended bluntly. Clear fluid is noted. BBA head is then delivered without difficulty mouth nares were bulb suctioned and the remainder the baby is delivered umbilical course clamped cut usual fashion an nursery personnel was present to assume care. Baby B is then brought down into the incision line and delivered from vertex presentation. Her official rupture memories with this baby also revealed clear fluid. Baby B's head is delivered and mouth nares were bulb suctioned once this was accomplished the remainder the baby was delivered. Nursery personnel was present to assume care and the umbilical cord is clamped cut usual fashion. Placenta with is then delivered intact and Pitocin was added to the IV. Uterus is then exteriorized cleared of clots and debris and closed in 2 layers with 0 Vicryl suture. Once excellent hemostasis was felt to be obtained blood and debris is suctioned from the posterior cul-de-sac and uterus was reinserted into the abdomen. Gutters are clear. Peritoneal layer was then reapproximated with 0 Vicryl suture. Fascial layer was closed with 0 Vicryl suture. Skin is then closed subcuticular with 3-0 Vicryl as there is less than 1 cm of subcuticular tissue. Sponge, lap, needle counts were all correct 2. Patient is then taken to the recovery room in stable and satisfactory condition.
[2021-04-18] MEDS ORDERED: ACETAMINOPHEN IV (For NPO) 1,000 MG in EMPTY BAG 1 BAG IVPB STA (16:54)
[2021-04-18] MEDS: ACETAMINOPHEN TAB 500 MG TAB PO SCH (16:56)
[2021-04-18] MEDS: SENNOSIDES-DOCUSATE SODIUM 1 EACH TAB PO SCH (22:16)
[2021-04-19] MEDS: KETOROLAC 15 MG/ML 1 ML VIAL IVP SCH ×2 (01:56→09:20)
[2021-04-19] MEDS: ACETAMINOPHEN TAB 500 MG TAB PO SCH ×4 (04:08→18:31)
[2021-04-19] MEDS: LACTATED RINGERS 1,000 ML IV SCH ×4 (04:08→06:37)
[2021-04-19 06:20] LABS: Basophils % (A) 0 %; Eosinophils # (A) 0.1 k/uL (0-0.7); Eosinophils % (A) 1 %; HCT 28.4 % (34.0-46.0); HGB 8.9 gm/dL (11.4-16.0); Hypochromasia Marked; Lymphocytes # (A) 1.9 k/uL (1.0-4.8); Lymphocytes % (A) 18 %; MCH 21.9 pg (25.0-35.0); MCHC 31.2 g/dL (31.0-37.0); MCV 70.3 fL (80.0-100.0); Mean Platelet Volume 8.1; Microcytosis Moderate; Monocytes # (A) 0.5 k/uL (0-1.0); Monocytes % (A) 5 %; Neutrophils # (A) 7.5 k/uL (1.3-7.7); Neutrophils % (A) 73 %; Platelet Count 259 k/uL (150-450); Poikilocytosis Slight; RBC 4.04 m/uL (3.80-5.40); WBC 10.2 k/uL (3.8-10.6)
[2021-04-19 06:33] LABS: ALT 13 U/L (4-34); AST 37 U/L (14-36); African American GFR (CKD) >90 (>60 ml/min/1.73 sqM); Albumin 2.8 g/dL (3.5-5.0); Alkaline Phosphatase 161 U/L (38-126); Anion Gap 4 mmol/L; Blood Urea Nitrogen 8 mg/dL (7-17); Calcium 8.3 mg/dL (8.4-10.2); Carbon Dioxide 22 mmol/L (22-30); Chloride 105 mmol/L (98-107); Glucose 61 mg/dL (74-99); Non-African American GFR(CKD) >90 (>60 ml/min/1.73 sqM); Potassium 4.2 mmol/L (3.5-5.1); Sodium 131 mmol/L (137-145); Total Bilirubin 0.6 mg/dL (0.2-1.3); Total Protein 5.7 g/dL (6.3-8.2)
--- NOTE | 2021-04-19 08:10 | P.PN ---
Progress Note - Text Progress Note Date: 04/19/21 (548) Pt seen. S/p C/s with duramorph. VAS 6-7. tolerable VSS. +nausea yesterday. Now all resolved. Gross lower extremity strength intact. All questions answered. Without apparent anesthetic complication.
[2021-04-19 08:51] VITALS: RESP 16
--- NOTE | 2021-04-19 08:58 | P.PNOBGPC ---
Subjective - Subjective Principal diagnosis: Postop day 1 Interval history: Overall doing very well. She is ambulating, now she is voiding, and she is tolerating diet. She did not void well through the night and a bladder scan revealed that after 8 hours she only had about 100 mL of urine in her bladder. A fluid bolus was given and approximately 2 are clear she is now P approximately 350 mL of urine. Otherwise she is doing well this morning and will try and switch her over to oral pain medication today with expectation a fairly is going fine she can go home tomorrow. Her BUN and creatinine were normal this morning and her hemoglobin oddly is increased from 7.6-8.9. She is stable. Patient reports: Reports appetite normal, Reports voiding normally, Reports pain well controlled, Reports ambulating normally : doing well Objective - Vital Signs Latest vital signs: Vital Signs Temp Pulse Resp BP Pulse Ox 04/19/21 08:00 98.2 F 64 16 111/64 04/19/21 04:00 98.0 F 48 L 15 115/68 99 04/18/21 23:49 60 16 04/18/21 23:48 97.8 F 60 16 116/75 100 04/18/21 20:00 97.6 F 57 L 16 118/79 100 04/18/21 15:15 97.0 F L 71 18 106/70 98 04/18/21 14:45 97.7 F 51 L 18 108/64 98 04/18/21 14:12 62 18 109/68 99 04/18/21 14:00 97.7 F 57 L 18 109/68 99 04/18/21 13:45 97.7 F 69 18 110/65 04/18/21 13:30 97.7 F 66 18 111/68 99 04/18/21 13:15 97.8 F 75 18 115/62 98 Intake and Output 04/18/21 04/19/21 04/19/21 22:59 06:59 14:59 Intake Total 500 Output Total 200 300 Balance -200 200 Intake: IV 500 Output: Urine 200 300 Other: # Voids 1 - Exam Lungs: bilateral: normal Chest: Normal S1, Normal S2 Extremities: Present: normal Abdomen: Present: normal appearance, soft. Absent: distention, tenderness Incision: Present: normal, dry, intact Uterus: Present: normal, firm - Labs Labs: Abnormal Lab Results - Last 24 Hours (Table) 04/18/21 04/19/21 04/19/21 Range/Units 09:06 05:59 05:59 RBC 3.57 L (3.80-5.40) m/uL Hgb 7.6 L 8.9 L (11.4-16.0) gm/dL Hct 24.9 L 28.4 L (34.0-46.0) % MCV 69.7 L 70.3 L (80.0-100.0) fL MCH 21.2 L 21.9 L (25.0-35.0) pg MCHC 30.5 L (31.0-37.0) g/dL RDW 15.9 H 16.0 H (11.5-15.5) % Sodium 131 L (137-145) mmol/L Creatinine 0.44 L (0.52-1.04) mg/dL Glucose 61 L (74-99) mg/dL Calcium 8.3 L (8.4-10.2) mg/dL AST 37 H (14-36) U/L Alkaline Phosphatase 161 H (38-126) U/L Total Protein 5.7 L (6.3-8.2) g/dL Albumin 2.8 L (3.5-5.0) g/dL
[2021-04-19] MEDS ORDERED: HYDROcodone/APAP 5-325MG 1 EACH TAB PO PRN (08:59)
[2021-04-19] MEDS: SENNOSIDES-DOCUSATE SODIUM 1 EACH TAB PO SCH ×2 (09:20→21:21)
[2021-04-19] MEDS: IBUPROFEN 600 MG TAB PO SCH ×2 (15:48→21:22)
[2021-04-19] MEDS: HYDROcodone/APAP 5-325MG 1 EACH TAB PO PRN (18:30)
[2021-04-19 23:48] VITALS: PULSE 66
[2021-04-20] MEDS: LACTATED RINGERS 1,000 ML IV SCH ×5 (00:22→00:27)
[2021-04-20] MEDS: IBUPROFEN 600 MG TAB PO SCH ×3 (00:22→11:44)
[2021-04-20] MEDS: KETOROLAC 15 MG/ML 1 ML VIAL IVP SCH (00:26)
[2021-04-20] MEDS: HYDROcodone/APAP 5-325MG 1 EACH TAB PO PRN ×2 (00:53→07:58)
[2021-04-20] MEDS: ACETAMINOPHEN TAB 500 MG TAB PO SCH ×3 (00:54→11:58)
--- NOTE | 2021-04-20 06:33 | P.PNOBGPC ---
Subjective - Subjective Patient reports: Reports appetite normal, Reports voiding normally, Reports pain well controlled, Reports ambulating normally : doing well Objective - Vital Signs Latest vital signs: Vital Signs Temp Pulse Resp BP 04/19/21 23:46 98.1 F 66 16 109/66 04/19/21 15:44 98.3 F 60 16 117/72 04/19/21 11:47 97.7 F 54 L 16 115/70 04/19/21 08:00 98.2 F 64 16 111/64 Intake and Output 04/19/21 04/19/21 04/20/21 14:59 22:59 06:59 Output Total 350 250 Balance -350 -250 Output: Urine 350 250 Other: # Voids 1 1 - Exam Lungs: bilateral: normal Chest: Normal S1, Normal S2 Extremities: Present: normal Abdomen: Present: normal appearance, soft. Absent: distention, tenderness Incision: Present: normal, dry, intact Uterus: Present: normal, firm - Labs Labs: Abnormal Lab Results - Last 24 Hours (Table) 04/19/21 Range/Units 05:59 Sodium 131 L (137-145) mmol/L Creatinine 0.44 L (0.52-1.04) mg/dL Glucose 61 L (74-99) mg/dL Calcium 8.3 L (8.4-10.2) mg/dL AST 37 H (14-36) U/L Alkaline Phosphatase 161 H (38-126) U/L Total Protein 5.7 L (6.3-8.2) g/dL Albumin 2.8 L (3.5-5.0) g/dL Assessment and Plan Assessment: Postoperative day #2. Patient continues to do well and wishes to go home. Vital signs are stable and she is afebrile. Her incision is intact and dry. My impression is that this is a normal postoperative course. She's having adequate pain control, tolerating regular diet and feeling well therefore I believe she stable to discharge home. (1) delivery delivered Current Visit: Yes Status: Acute Code(s): O82 - ENCOUNTER FOR DELIVERY WITHOUT INDICATION SNOMED Code(s): 062488104 (2) Anemia Current Visit: Yes Status: Acute Code(s): D64.9 - ANEMIA, UNSPECIFIED SNOMED Code(s): 324232041
--- NOTE | 2021-04-20 06:38 | P.DS ---
Providers Date of admission: 04/18/21 06:38 Expected date of discharge: 04/20/21 Attending physician: Rishi Segura Primary care physician: Stated None - Discharge Diagnosis(es) (1) delivery delivered Current Visit: Yes Status: Acute (2) Anemia Current Visit: Yes Status: Acute Hospital Course: Please see dictated H&P for intimate details of this patient's admission. Brief summary is a pleasant 25-year-old 4 para 2 female 37 weeks gestation with known twins who is admitted for initial vaginal delivery however was found to have malpresentation twin B. Patient subsequently underwent a primary low transverse section for viable female infants. Please see dictated delivery note. Patient does have chronic anemia however her hemoglobin postdelivery was higher than pre-delivery. Patient is already on iron therapy at home. Patient's felt be stable for discharge home postoperative her to follow up with Dr. Segura in approximately 1 week. Procedures: Primary low transverse section Patient Condition at Discharge: Good Plan - Discharge Summary Follow up Appointment(s)/Referral(s): Rishi Segura DO [Doctor of Osteopathic Medicine] - 05/30/21 3:00 pm (05-04-2021 @ 01:30 p.m for an incision check.) Patient Instructions/Handouts: (DC), Iron Deficiency Anemia (DC) Activity/Diet/Wound Care/Special Instructions: No strenuous activity or heavy lifting for 6 weeks. No intercourse or anything per vagina for 6 weeks. Please take your iron therapy as directed. Discharge Disposition: HOME SELF-CARE
[2021-04-20] MEDS: SENNOSIDES-DOCUSATE SODIUM 1 EACH TAB PO SCH (07:58)
[2021-04-20 08:06] VITALS: BP 101/61; TEMP 98
== END 2021-04-20 12:11 | disposition home or self-care (01) | DRG 788 ==
LOC: 4FBP 06:38
PROVIDERS: ADMIT Obstetrics & Gynecology; ATTEND Obstetrics & Gynecology
PROC: 10D00Z1 Extraction of Products of Conception, Low, Open Approach (ICD-10-PCS; principal; 2021-04-18 12:00)
DX: O30.003 Twin pregnancy, unspecified number of placenta and unspecified number of amniotic sacs, third trimester (principal); O99.02 Anemia complicating childbirth; Z37.2 Twins, both liveborn; Z3A.37 37 weeks gestation of pregnancy; D64.9 Anemia, unspecified; O32.9XX2 Maternal care for malpresentation of fetus, unspecified, fetus 2
CPT/HCPCS: 76805; 76810; 80053; 85025; 86850; 86900; 86901; 88307

== ENCOUNTER 2023-02-21 17:08 | Inpatient (IN) | payer OTHER ==
[2023-02-21] MEDS ORDERED: SODIUM CHLORIDE 0.9% 1,000 ML IV ONE (17:15)
[2023-02-21 17:17] LABS: Glucose,Whole Blood 236 mg/dL (70-110)
[2023-02-21] MEDS ORDERED: ONDANSETRON 4 MG/2 ML VIAL IVP STA (17:30)
[2023-02-21 17:37] LABS: Basophils # (A) 0.1 k/uL (0-0.2); Basophils % (A) 0 %; Eosinophils # (A) 0.1 k/uL (0-0.7); Eosinophils % (A) 0 %; HCT 41.8 % (34.0-46.0); HGB 12.9 gm/dL (11.4-16.0); Hypochromasia Slight; Lymphocytes # (A) 1.7 k/uL (1.0-4.8); Lymphocytes % (A) 7 %; MCH 28.4 pg (25.0-35.0); MCHC 30.8 g/dL (31.0-37.0); MCV 92.2 fL (80.0-100.0); Mean Platelet Volume 8.5; Monocytes # (A) 0.5 k/uL (0-1.0); Monocytes % (A) 2 %; Neutrophils # (A) 22.1 k/uL (1.3-7.7); Neutrophils % (A) 90 %; Platelet Count 213 k/uL (150-450); RBC 4.54 m/uL (3.80-5.40); RDW 13.7 % (11.5-15.5); WBC 24.7 k/uL (3.8-10.6)
[2023-02-21 17:47] LABS: ALT 20 U/L (4-34); AST 28 U/L (14-36); Acetaminophen <10.0 ug/mL; African American GFR (CKD) >90 (>60 ml/min/1.73 sqM); Albumin 4.5 g/dL (3.5-5.0); Alcohol <10 mg/dL; Alkaline Phosphatase 67 U/L (38-126); Anion Gap 17 mmol/L; Blood Urea Nitrogen 12 mg/dL (7-17); Calcium 8.3 mg/dL (8.4-10.2); Carbon Dioxide 20 mmol/L (22-30); Chloride 103 mmol/L (98-107); Glucose 246 mg/dL (74-99); Non-African American GFR(CKD) 82 (>60 ml/min/1.73 sqM); Potassium 4.6 mmol/L (3.5-5.1); Salicylate <1.0 mg/dL; Sodium 140 mmol/L (137-145); Total Bilirubin 0.3 mg/dL (0.2-1.3); Total Protein 7.4 g/dL (6.3-8.2)
[2023-02-21 17:57] LABS: Partial Thromboplastin Time 20.4 sec (22.0-30.0)
[2023-02-21 18:17] LABS: Prothrombin Time 10.8 sec (9.0-12.0)
[2023-02-21] MEDS ORDERED: diphenhydrAMINE 50 MG/ML 1 ML VIAL IVP STA (18:38)
[2023-02-21] MEDS ORDERED: METOCLOPRAMIDE 5 MG/ML 2 ML VIAL IVP STA (18:38)
--- NOTE | 2023-02-21 18:54 | XR ---
EXAMINATION TYPE: XR chest 2V DATE OF EXAM: 02/21/2023 5:57 PM COMPARISON: None TECHNIQUE: XR chest 2V Frontal and lateral views of the chest. CLINICAL INDICATION:Female, 27 years old with history of altered mental status; FINDINGS: Lungs/Pleura: There is no evidence of pleural effusion, focal consolidation, or pneumothorax. Pulmonary vascularity: Unremarkable. Heart/mediastinum: Cardiomediastinal silhouette is unremarkable. Musculoskeletal: No acute osseous pathology. IMPRESSION: No acute cardiopulmonary disease/process.
--- NOTE | 2023-02-21 19:54 | CT ---
EXAMINATION TYPE: CT chest angio for PE CT DLP: 331.2 mGycm, Automated exposure control for dose reduction was used. DATE OF EXAM: 02/21/2023 7:22 PM COMPARISON: Chest radiograph from same day. CLINICAL INDICATION:Female, 27 years old with history of elevated trop; overdose, elevated trop TECHNIQUE/CONTRAST: CTA scan of the thorax is performed with IV Contrast, patient injected with 100ml mL of Isovue 370, p ulmonary embolism protocol. MIP images are created and reviewed these are created on a separate work station.. FINDINGS: Pulmonary Artery: There is no evidence for a filling defect within the pulmonary vasculature to sugge st acute pulmonary embolism. The pulmonary artery is of normal size. Lungs/Pleura: Groundglass opacities are seen within the right upper lobe apex and right lower lobe alaniz perior segment. No evidence focal consolidation, pneumothorax or pleural effusion. Airway: Large airways are patent. Heart: Heart is within normal limits for size. Vasculature: No evidence of aortic aneurysm. Mediastinum: No gross evidence of adenopathy. Musculoskeletal: No acute osseous abnormalities Soft Tissues: Unremarkable. Lower neck: No significant findings. Upper Abdomen: No significant findings. IMPRESSION: 1. No evidence of pulmonary embolism. 2. Right upper lung ground glass opacities. Correlate for atypical pneumonia/aspiration.
[2023-02-21] MEDS ORDERED: NALOXONE 0.4 MG/ML 1 ML VIAL IV PRN (20:33)
[2023-02-21] MEDS ORDERED: IBUPROFEN 400 MG TAB PO PRN (20:33)
[2023-02-21] MEDS ORDERED: ONDANSETRON 4 MG/2 ML VIAL IVP PRN (20:33)
[2023-02-21] MEDS ORDERED: ACETAMINOPHEN TAB 325 MG TAB PO PRN (20:33)
--- NOTE | 2023-02-21 20:33 | ED ---
Overdose HPI - General Chief Complaint: Overdose Stated Complaint: overdose Source: EMS Mode of arrival: EMS Limitations: altered mental status - History of Present Illness Initial Comments: 27-year-old female with no reported past medical history who presents to the emergency department as an overdose. She was found unconscious in bed by a family member. EMS states that the patient had complete respiratory arrest. They did give her 1 mg of Narcan IV and she did have improvement in her respiratory status. En route to the hospital the patient ended up having respiratory suppression where she required another dose of Narcan 1 mg IV. Patient arrives awake and able to answer questions however she is extremely reserved. She does admit that she snorted heroin and this is her first time using. She is unsure of the details surrounding the event and therefore cannot provide much history. She denies concern for . She was nauseated when the Narcan was administered and had an episode of vomiting. She denies using any other drugs. No alcohol use. She denies chest pain. No other alleviating, precipitating or modifying factors - Related Data Previous Rx's Medication Instructions Recorded cefUROXime axetiL [Ceftin] 500 mg PO BID #6 tab 02/23/23 Allergies Allergy/AdvReac Type Severity Reaction Status Date / Time No Known Drug Allergies Allergy Unknown Verified 02/21/23 20:19 Review of Systems ROS Statement: Those systems with pertinent positive or pertinent negative responses have been documented in the HPI. ROS Other: All systems not noted in ROS Statement are negative. Past Medical History Past Medical History: No Reported History History of Any Multi-Drug Resistant Organisms: None Reported Past Surgical History: No Surgical Hx Reported Past Anesthesia/Blood Transfusion Reactions: No Reported Reaction Past Psychological History: No Psychological Hx Reported Smoking Status: Never smoker Past Alcohol Use History: None Reported Past Drug Use History: None Reported - Past Family History Mother Family Medical History: No Reported History General Exam Limitations: altered mental status General appearance: lethargic, in distress Head exam: Present: atraumatic, normocephalic, normal inspection Eye exam: Present: PERRL, EOMI, conjunctival injection. Absent: scleral icterus, periorbital swelling ENT exam: Present: normal exam, mucous membranes moist Neck exam: Present: normal inspection. Absent: tenderness, meningismus, lymphadenopathy Respiratory exam: Present: other (coarse breath sounds - right lower lobe). Absent: respiratory distress, wheezes, rales, rhonchi, stridor Cardiovascular Exam: Present: normal rhythm, tachycardia, normal heart sounds. Absent: systolic murmur, diastolic murmur, rubs, gallop, clicks Extremities exam: Present: normal inspection, full ROM, normal capillary refill. Absent: tenderness, pedal edema, joint swelling, calf tenderness Neurological exam: Present: altered, CN II-XII intact, other (slowed responses. ) Psychiatric exam: Present: anxious Skin exam: Present: diaphoretic, other (face/hair covered in vomit) Course Vital Signs 02/21/23 02/21/23 02/21/23 17:14 18:49 19:56 Temperature 98.2 F Pulse Rate 104 H 84 76 Respiratory 16 18 16 Rate Blood Pressure 124/86 122/74 101/72 O2 Sat by Pulse 97 95 96 Oximetry 02/21/23 21:32 Temperature Pulse Rate 76 Respiratory 18 Rate Blood Pressure 102/68 O2 Sat by Pulse 98 Oximetry Medical Decision Making - Medical Decision Making Was pt. sent in by a medical professional or institution ([facility], [employer] [facility], urgent care, hospital, or [facility]...) When possible be specific @ -No Did you speak to anyone other than the patient for history (EMS, parent, family, police, friend...)? What history was obtained from this source @ -I spoke with EMS - patient had complete respiratory arrest. They gave 2 mg of narcan - one on scene and the other enroute to the hospital Did you review nursing and triage notes (agree or disagree)? Why? @ -I reviewed and agree with nursing and triage notes Were old charts reviewed (outside hosp., previous admission, EMS record, old EKG, old radiological studies, urgent care reports/EKG's, [facility] records)? Report findings @ -No old charts were reviewed Differential Diagnosis (chest pain, altered mental status, abdominal pain women, abdominal pain men, vaginal bleeding, weakness, fever, dyspnea, syncope, headache, dizziness, GI bleed, back pain, seizure, CVA, palpatations, mental health, musculoskeletal)? @ -opiate overdose, alcohol intoxication, anaphylaxic reaction, head injury, sah. sdh, cva EKG interpreted by me (3pts min.). @ -Interpreted by myself - please see above X-rays interpreted by me (1pt min.). @ -yes CT interpreted by me (1pt min.). @ -yes, consolidation rll U/S interpreted by me (1pt. min.). @ -None done What testing was considered but not performed or refused? (CT, X-rays, U/S, labs)? Why? @ -None What meds were considered but not given or refused? Why? @ -None Did you discuss the management of the patient with other professionals (professionals i.e. , PA, [employer], lab, RT, psych nurse, long term care social worker, energy risk management analyst, teacher, neighborhood conservation officer, case fitter)? Give summary @ -yes, I spoke with Dr. Alcala to admit the patient Was smoking cessation discussed for >3mins.? @ -yes, discussed thc use and cessasion among cessation of use of other illicit substances Was critical care preformed (if so, how long)? @ -yes, 35 minutes Were there social determinants of health that impacted care today? How? (Homelessness, low income, unemployed, alcoholism, drug addiction, transportation, low edu. Level, literacy, decrease access to med. care, retirement, rehab)? @ -No Was there de-escalation of care discussed even if they declined (Discuss DNR or withdrawal of care, Hospice)? DNR status @ -No What co-morbidities impacted this encounter? (DM, HTN, Smoking, COPD, CAD, Cancer, CVA, ARF, Chemo, Hep., AIDS, mental health diagnosis, sleep apnea, morbid obesity)? @ -None Was patient admitted / discharged? Hospital course, mention meds given and rou te, prescriptions, significant lab abnormalities, going to OR and other pertinent info. @ -On arrival patient is placed into room 4. Thorough history and physical exam was performed. Patient given a liter bolus of normal saline. Laboratory studies are conducted which demonstrated a leukocytosis 24.7. Troponin is elevated 0.052. Chest x-ray demonstrates no acute process. CT of the chest is performed which demonstrates right upper lung ground glass opacities concerning for aspiration pneumonia. Due to elevated troponin and aspiration pneumonia, I did recommend admission for which the patient was agreeable. Spoke with Dr. Alcala who agreed to admit the patient. Undiagnosed new problem with uncertain prognosis? @ -yes Drug Therapy requiring intensive monitoring for toxicity (Heparin, Nitro, Insulin, Cardizem)? @ -No Were any procedures done? @ -No Diagnosis/symptom? @ -acute respiratory arrest, acute opiate overdose, NSTEMI, aspiration pneumonitis Acute, or Chronic, or Acute on Chronic? @ -acute Uncomplicated (without systemic symptoms) or Complicated (systemic symptoms)? @ -complicated Side effects of treatment? @ -vomiting Exacerbation, Progression, or Severe Exacerbation? @ -No Poses a threat to life or bodily function? How? (Chest pain, USA, [place], pneumonia, PE, COPD, DKA, ARF, appy, cholecystitis, CVA, Diverticulitis, Homicidal, Suicidal, threat to staff... and all critical care pts) @ -yes, patient almost had it not been for family calling EMS - Lab Data Result diagrams: 02/22/23 09:27 02/22/23 10:02 Lab Results 02/21/23 02/21/23 02/21/23 Range/Units 17:16 17:23 17:23 WBC 24.7 H (3.8-10.6) k/uL RBC 4.54 (3.80-5.40) m/uL Hgb 12.9 (11.4-16.0) gm/dL Hct 41.8 (34.0-46.0) % MCV 92.2 (80.0-100.0) fL MCH 28.4 (25.0-35.0) pg MCHC 30.8 L (31.0-37.0) g/dL RDW 13.7 (11.5-15.5) % Plt Count 213 (150-450) k/uL MPV 8.5 Neutrophils % 90 % Lymphocytes % 7 % Monocytes % 2 % Eosinophils % 0 % Basophils % 0 % Neutrophils # 22.1 H (1.3-7.7) k/uL Lymphocytes # 1.7 (1.0-4.8) k/uL Monocytes # 0.5 (0-1.0) k/uL Eosinophils # 0.1 (0-0.7) k/uL Basophils # 0.1 (0-0.2) k/uL Hypochromasia Slight PT 10.8 (9.0-12.0) sec INR 1.0 (<1.2) APTT 20.4 L (22.0-30.0) sec Sodium (137-145) mmol/L Potassium (3.5-5.1) mmol/L Chloride (98-107) mmol/L Carbon Dioxide (22-30) mmol/L Anion Gap mmol/L BUN (7-17) mg/dL Creatinine (0.52-1.04) mg/dL Est GFR (CKD-EPI)AfAm (>60 ml/min/1.73 sqM) Est GFR (CKD-EPI)NonAf (>60 ml/min/1.73 sqM) Glucose (74-99) mg/dL POC Glucose (mg/dL) 236 H (70-110) mg/dL POC Glu Storage Center Manager ID [facility] Calcium (8.4-10.2) mg/dL Total Bilirubin (0.2-1.3) mg/dL AST (14-36) U/L ALT (4-34) U/L Alkaline Phosphatase (38-126) U/L Troponin I (0.000-0.034) ng/mL Total Protein (6.3-8.2) g/dL Albumin (3.5-5.0) g/dL Salicylates mg/dL Acetaminophen ug/mL Serum Alcohol mg/dL 02/21/23 02/21/23 Range/Units 17:23 17:23 WBC (3.8-10.6) k/uL RBC (3.80-5.40) m/uL Hgb (11.4-16.0) gm/dL Hct (34.0-46.0) % MCV (80.0-100.0) fL MCH (25.0-35.0) pg MCHC (31.0-37.0) g/dL RDW (11.5-15.5) % Plt Count (150-450) k/uL MPV Neutrophils % % Lymphocytes % % Monocytes % % Eosinophils % % Basophils % % Neutrophils # (1.3-7.7) k/uL Lymphocytes # (1.0-4.8) k/uL Monocytes # (0-1.0) k/uL Eosinophils # (0-0.7) k/uL Basophils # (0-0.2) k/uL Hypochromasia PT (9.0-12.0) sec INR (<1.2) APTT (22.0-30.0) sec Sodium 140 (137-145) mmol/L Potassium 4.6 (3.5-5.1) mmol/L Chloride 103 (98-107) mmol/L Carbon Dioxide 20 L (22-30) mmol/L Anion Gap 17 mmol/L BUN 12 (7-17) mg/dL Creatinine 0.97 (0.52-1.04) mg/dL Est GFR (CKD-EPI)AfAm >90 (>60 ml/min/1.73 sqM) Est GFR (CKD-EPI)NonAf 82 (>60 ml/min/1.73 sqM) Glucose 246 H (74-99) mg/dL POC Glucose (mg/dL) (70-110) mg/dL POC Glu [employer] Manager ID Calcium 8.3 L (8.4-10.2) mg/dL Total Bilirubin 0.3 (0.2-1.3) mg/dL AST 28 (14-36) U/L ALT 20 (4-34) U/L Alkaline Phosphatase 67 (38-126) U/L Troponin I 0.052 H* (0.000-0.034) ng/mL Total Protein 7.4 (6.3-8.2) g/dL Albumin 4.5 (3.5-5.0) g/dL Salicylates <1.0 mg/dL Acetaminophen <10.0 ug/mL Serum Alcohol <10 mg/dL - EKG Data EKG Comments: EKG demonstrates sinus rhythm rate 95. [place] interval 170. QRS 81. QTC of 387. No acute ST segment elevations or depressions Critical Care Time Critical Care Time: Yes Critical Care Time: 35 minutes Disposition Clinical Impression: Aspiration pneumonia, Opiate overdose, Elevated troponin Disposition: ADMITTED IP TO THIS HOSP Is patient prescribed a controlled substance at d/c from ED?: No Time of Disposition: 20:33 Decision to Admit Reason: Admit from EC Decision Date: 02/21/23 Decision Time: 20:33
[2023-02-21] MEDS ORDERED: PNEUMONIA PROTOCOL UTILIZED 1 EACH MISC PO PRN (20:52)
[2023-02-21] MEDS ORDERED: IPRATROPIUM-ALBUTEROL 3 ML NEB INHALATION PRN (20:52)
[2023-02-21] MEDS ORDERED: AZITHROMYCIN 500 MG in SODIUM CHLORIDE 0.9% 250 ML IVPB STA (20:52)
[2023-02-21] MEDS: SODIUM CHLORIDE 0.9% 1,000 ML IV SCH (21:06)
[2023-02-22 03:42] LABS: Appearance,Urine Clear (Clear); Bacteria,Urine Rare /hpf; Bilirubin,Urine Negative (Negative); Blood,Urine Trace (Negative); Color,Urine Yellow; Glucose,Urine (UA) Trace (Negative); Ketones,Urine 1+ (Negative); Leukocyte Esterase,Urine Negative (Negative); Mucus,Urine Rare /hpf; Nitrite,Urine Positive (Negative); PH, Urine 6.5 (5.0-8.0); Protein,Urine Trace (Negative); RBC,Urine 4 /hpf (0-5); Squamous Epithelial Cell,Urine 1 /hpf (0-4); Urobilinogen,Urine <2.0 mg/dL (<2.0); WBC,Urine 4 /hpf (0-5)
[2023-02-22 03:44] LABS: Specific Gravity,Urine >1.050 (1.001-1.035)
[2023-02-22 03:54] LABS: Amphetamine Screen,Urine Not Detected (NotDetected); Barbiturate Screen,Urine Not Detected (NotDetected); Benzodiazepines Screen,Urine Not Detected (NotDetected); Cocaine Screen,Urine Detected (NotDetected); Methadone Screen, Urine Not Detected (NotDetected); Opiate Screen,Urine Detected (NotDetected); Oxycodone Screen, Urine Not Detected (NotDetected); Phencyclidine Screen,Urine Not Detected (NotDetected); Tricyclic Antidepressant,Urine Not Detected (NotDetected); Urn Cannabinoid Scrn Detected (NotDetected)
[2023-02-22] MEDS: SODIUM CHLORIDE 0.9% 1,000 ML IV SCH (05:50)
--- NOTE | 2023-02-22 07:25 | XR ---
EXAMINATION TYPE: XR chest 2V DATE OF EXAM: 02/22/2023 COMPARISON: 02/21/2023 INDICATION: Pneumonia TECHNIQUE: Frontal and lateral views of the chest are obtained. FINDINGS: The heart size is normal. The pulmonary vasculature is normal. The lungs are clear. IMPRESSION: 1. No acute pulmonary process.
[2023-02-22 10:26] LABS: ALT 15 U/L (4-34); AST 20 U/L (14-36); African American GFR (CKD) >90 (>60 ml/min/1.73 sqM); Albumin 3.2 g/dL (3.5-5.0); Alkaline Phosphatase 57 U/L (38-126); Anion Gap 5 mmol/L; Blood Urea Nitrogen 7 mg/dL (7-17); Calcium 7.8 mg/dL (8.4-10.2); Carbon Dioxide 26 mmol/L (22-30); Chloride 105 mmol/L (98-107); Glucose 74 mg/dL (74-99); Non-African American GFR(CKD) >90 (>60 ml/min/1.73 sqM); Potassium 3.8 mmol/L (3.5-5.1); Sodium 136 mmol/L (137-145); Total Bilirubin 0.2 mg/dL (0.2-1.3); Total Protein 5.7 g/dL (6.3-8.2)
[2023-02-22 11:17] LABS: Basophils % (A) 0 %; Eosinophils # (A) 0.1 k/uL (0-0.7); Eosinophils % (A) 1 %; HCT 35.1 % (34.0-46.0); Lymphocytes # (A) 3.2 k/uL (1.0-4.8); Lymphocytes % (A) 29 %; MCH 28.2 pg (25.0-35.0); MCHC 31.3 g/dL (31.0-37.0); MCV 90.1 fL (80.0-100.0); Mean Platelet Volume 8.9; Monocytes # (A) 0.5 k/uL (0-1.0); Monocytes % (A) 5 %; Neutrophils # (A) 6.9 k/uL (1.3-7.7); Neutrophils % (A) 63 %; Platelet Count 178 k/uL (150-450); RDW 13.9 % (11.5-15.5)
[2023-02-22] MEDS: ENOXAPARIN 40 MG/0.4 ML SYRINGE SQ SCH (12:27)
--- NOTE | 2023-02-22 14:27 | P.CRDCN ---
History of Present Illness Consult date: 02/22/23 Reason for Consult (text): Elevated troponin History of present illness: The patient is a 27-year-old female with no past medical history, who is currently admitted to the hospital with heroin overdose. She was found unconscious at home and was given Narcan by EMS. Cardiology has been consulted for elevated troponin level. At the time of my examination the patient was sitting up comfortably in bed. She denies any recollection of events, therefore cannot attest to any cardiac symptoms prior to her overdose and is unaware if any CPR was performed. DIAGNOSTICS: EKG shows sinus rhythm with no ST or T-wave abnormalities Chest x-ray shows no acute cardiopulmonary process Computed tomography scan shows no evidence of pulmonary embolism. Right upper groundglass opacities, possible atypical pneumonia/aspiration pneumonia Blood pressure 104/66, heart rate 73, respiratory rate 16, SpO2 90% on room air, afebrile Lab data: WBC 11.0, hemoglobin 11.0, hematocrit 35.1, platelet 178, sodium 136, potassium 3.8, BUN 7, creatinine 0.57, positive for urinary tract infection. Drug screen positive for opiates, cocaine, marijuana. Troponin 0.05, 0.19, 0.16 REVIEW OF SYSTEMS: No fever or chills. No cough or expectoration. No diaphoresis. Patient denies headache, dizziness, blurred vision, double vision. Patient denies any stomach discomfort. No nausea, vomiting. No hematochezia. No hematemesis. Denies any black stools or blood in his stools. Denies dysuria or hematuria. No muscle weakness or numbness. Negative for chest pain or chest pressure. Negative for dyspnea or orthopnea PHYSICAL EXAMINATION: This is a 27-year-old female in no apparent distress at the time of my examination. HEENT: Head is atraumatic, normocephalic. Pupils are equal, round. Sclerae anicteric. Conjunctivae are clear. Mucous membranes of the mouth are moist. Neck is supple. There is no jugular venous distention. No carotid bruit is heard. CHEST EXAMINATION: Lungs are clear to auscultation. No chest wall tenderness is noted on palpation or with deep breathing. HEART EXAMINATION: Heart regular rate and rhythm. S1, S2 heard. No murmurs, gallops or rub. ABDOMEN: Soft, nontender. Bowel sounds are heard. No organomegaly noted. EXTREMITIES: 2+ peripheral pulses with no evidence of peripheral edema and no calf tenderness noted. NEUROLOGIC EXAMINATION: Patient is awake, alert and oriented x3. FINAL ASSESSMENT AND PLAN: Opioid overdose Status post Narcan administration Elevated troponin PLAN: Echocardiogram and Doppler study to assess heart structure and function Further recommendations to be based upon clinical course I am dictating on behalf of Dr Eliot Kennedy's history/physical and assessment/plan. Past Medical History Past Medical History: No Reported History Additional Past Medical History / Comment(s): Heart Murmur with History of Any Multi-Drug Resistant Organisms: None Reported Past Surgical History: No Surgical Hx Reported Additional Past Surgical History / Comment(s): D and C Past Anesthesia/Blood Transfusion Reactions: No Reported Reaction Past Psychological History: No Psychological Hx Reported Smoking Status: Never smoker Past Alcohol Use History: None Reported Past Drug Use History: Heroin, Marijuana Additional Drug Use History / Comment(s): one time heroin use preceding this admission. - Past Family History Mother Family Medical History: No Reported History Medications and Allergies Home Medications Medication Instructions Recorded Confirmed Type No Known Home Medications 02/21/23 02/21/23 History Allergies Allergy/AdvReac Type Severity Reaction Status Date / Time No Known Drug Allergies Allergy Unknown Verified 02/21/23 20:19 Physical Exam Vitals: Vital Signs Temp Pulse Pulse Resp BP BP Pulse Ox 02/22/23 12:25 73 16 104/66 98 02/22/23 08:05 98.7 F 58 L 16 97/60 100 02/22/23 03:33 97.6 F 62 16 96/55 98 02/22/23 00:00 97.7 F 65 16 97/59 97 02/21/23 22:51 98.9 F 88 16 109/74 98 02/21/23 22:06 98.9 F 88 16 109/74 98 02/21/23 21:32 76 18 102/68 98 02/21/23 19:56 98.2 F 76 16 101/72 96 02/21/23 18:49 84 18 122/74 95 02/21/23 17:14 104 H 16 124/86 97 Intake and Output 02/21/23 02/22/23 02/22/23 22:59 06:59 14:59 Intake Total 1550 118 Balance 1550 118 Intake: Intake, IV Titration 1100 Amount Azithromycin 500 mg In 250 Sodium Chloride 0.9% 250 ml @ 250 mls/hr IVPB ONCE [facility] Rx#:[id number] Sodium Chloride 0.9% 1, 800 000 ml @ 130 mls/hr IV . Q7H42M [facility] Rx#:[id number] cefTRIAXone 2 gm In 50 Sodium Chloride 0.9% 50 ml @ 100 mls/hr IVPB Q24HR [facility] Rx#:[id number] Oral 450 118 Other: Voiding Method Toilet # Voids 2 # Bowel Movements 0 Weight 54.431 kg 56.1 kg Results 02/22/23 09:27 02/22/23 10:02 Cardiac Enzymes 02/21/23 02/21/23 02/21/23 Range/Units : 17: 21:50 AST 28 (14-36) U/L Troponin I 0.052 H* 0.199 H* (0.000-0.034) ng/mL 02/21/23 02/22/23 Range/Units 23:31 10:02 AST 20 (14-36) U/L Troponin I 0.164 H* (0.000-0.034) ng/mL Coagulation 02/21/23 Range/Units : PT 10.8 (9.0-12.0) sec APTT 20.4 L (22.0-30.0) sec CBC 02/21/23 02/22/23 Range/Units : 09:27 WBC 24.7 H 11.0 H (3.8-10.6) k/uL RBC 4.54 3.90 (3.80-5.40) m/uL Hgb 12.9 11.0 L (11.4-16.0) gm/dL Hct 41.8 35.1 (34.0-46.0) % Plt Count 213 178 (150-450) k/uL Comprehensive Metabolic Panel 02/21/23 02/22/23 Range/Units : 10:02 Sodium 140 136 L (137-145) mmol/L Potassium 4.6 3.8 (3.5-5.1) mmol/L Chloride 103 105 (98-107) mmol/L Carbon Dioxide 20 L 26 (22-30) mmol/L BUN 12 7 (7-17) mg/dL Creatinine 0.97 0.57 (0.52-1.04) mg/dL Glucose 246 H 74 (74-99) mg/dL Calcium 8.3 L 7.8 L (8.4-10.2) mg/dL AST 28 20 (14-36) U/L ALT 20 15 (4-34) U/L Alkaline Phosphatase 67 57 (38-126) U/L Total Protein 7.4 5.7 L (6.3-8.2) g/dL Albumin 4.5 3.2 L (3.5-5.0) g/dL Current Medications Generic Name Dose Route Start Last Admin Trade Name Freq PRN Reason Stop Dose Admin Acetaminophen 650 mg 02/21/23 20:33 Acetaminophen Tab 325 Mg Tab PO Q6HR PRN Mild Pain or Fever > 100.5 Albuterol/Ipratropium 3 ml 02/21/23 20:52 Ipratropium-Albuterol 3 Ml Neb INHALATION RT-Q4H PRN shortness of breath Enoxaparin Sodium 40 mg 02/22/23 10:15 02/22/23 12:27 Enoxaparin 40 Mg/0.4 Ml Syringe SQ 40 mg DAILY [facility] Administration Ceftriaxone Sodium 2 gm/ 50 mls @ 100 mls/hr 02/22/23 09:00 02/22/23 08:10 Sodium Chloride IVPB 02/25/23 09:29 100 mls/hr Q24HR [facility] Administration Protocol Ibuprofen 400 mg 02/21/23 20:33 Ibuprofen 400 Mg Tab PO Q6HR PRN Mild Pain or Fever > 100.5 Miscellaneous Information 1 each 02/21/23 20:52 Pneumonia Protocol Utilized 1 Each Misc PO ONCE PRN Per Protocol Naloxone HCl 0.2 mg 02/21/23 20:33 Naloxone 0.4 Mg/Ml 1 Ml Vial IV Q2M PRN Opioid Reversal Ondansetron HCl 4 mg 02/21/23 20:33 02/21/23 21:44 Ondansetron 4 Mg/2 Ml Vial IVP 4 mg Q8HR PRN Administration Nausea And Vomiting Intake and Output 02/21/23 02/22/23 02/22/23 22:59 06:59 14:59 Intake Total 1550 118 Balance 1550 118 Intake: Intake, IV Titration 1100 Amount Azithromycin 500 mg In 250 Sodium Chloride 0.9% 250 ml @ 250 mls/hr IVPB ONCE [facility] Rx#:[id number] Sodium Chloride 0.9% 1, 800 000 ml @ 130 mls/hr IV . Q7H42M [facility] Rx#:[id number] cefTRIAXone 2 gm In 50 Sodium Chloride 0.9% 50 ml @ 100 mls/hr IVPB Q24HR [facility] Rx#:[id number] Oral 450 118 Other: Voiding Method Toilet # Voids 2 # Bowel Movements 0 Weight 54.431 kg 56.1 kg 02/22/23 09:27 02/22/23 10:02
--- NOTE | 2023-02-22 17:40 | CA ---
Transthoracic Echo Report Name: Nithin Coles Age: 27 Gender: F : 1995 Exam Date: 02/22/2023 14:03 Exam Location: [facility] Ht (in): 64 Wt (lb): 123 Ordering Physician: Davida Prieto Attending/Referring Phys: [id number], Ida Pool Lifeguard Roxane Valdovinos RDCS Procedure CPT: Indications: elevated troponin Cardiac Hx: Technical Quality: Fair Contrast 1: Total Dose (mL): Contrast 2: Total Dose (mL): MEASUREMENTS (Male / Female) Normal Values 2D ECHO LV Diastolic Diameter PLAX 4.0 cm 4.2 - 5.9 / 3.9 - 5.3 cm LV Systolic Diameter PLAX 2.3 cm IVS Diastolic Thickness 0.8 cm 0.6 - 1.0 / 0.6 - 0.9 cm LVPW Diastolic Thickness 0.8 cm 0.6 - 1.0 / 0.6 - 0.9 cm LV Relative Wall Thickness 0.4 RV Internal Dim ED PLAX 3.0 cm LA Volume 65.3 cm??? 18 - 58 / 22 - 52 cm??? M-MODE Aortic Root Diameter MM 2.6 cm LA Systolic Diameter MM 3.6 cm LA Ao Ratio MM 1.4 AV Cusp Separation MM 1.9 cm DOPPLER AV Peak Velocity 164.2 cm/s AV Peak Gradient 10.8 mmHg AV Mean Velocity 114.5 cm/s AV Mean Gradient 6.0 mmHg AV Velocity Time Integral 33.6 cm LVOT Peak Velocity 157.1 cm/s LVOT Peak Gradient 9.9 mmHg LVOT Velocity Time Integral 28.7 cm MV Area PHT 2.9 cm??? Mitral E Point Velocity 138.1 cm/s Mitral A Point Velocity 89.7 cm/s Mitral E to A Ratio 1.5 MV Deceleration Time 259.9 ms MV E' Velocity 13.9 cm/s Mitral E to MV E' Ratio 10.0 TR Peak Velocity 270.3 cm/s TR Peak Gradient 29.2 mmHg Right Atrial Pressure 15.0 mmHg Pulmonary Artery Systolic Pressu 44.2 mmHg Right Ventricular Systolic Press 44.2 mmHg FINDINGS Left Ventricle Normal Left ventricular size, wall thickness, systolic function with no obvious regional wall motion abnormalities. Normal Left ventricular diastolic filling pattern. Left ventricular ejection fraction is estimated at 55-60 %. Right Ventricle Normal right ventricular size and function. Mild pulmonary hypertension. Right Atrium Normal right atrial size. Left Atrium Moderately increased left atrial volume. Mitral Valve Structurally normal mitral valve. No mitral stenosis, regurgitation or prolapse. Aortic Valve Trileaflet aortic valve. No aortic valve stenosis or regurgitation. Tricuspid Valve Structurally normal tricuspid valve. Pulmonic Valve Structurally normal pulmonic valve. Trace pulmonic regurgitation. Pericardium No pericardial effusion. Aorta Normal size aortic root and proximal ascending aorta. CONCLUSIONS Normal LV systolic function Previewed by: Dr. Eliot Kennedy MD (Electronically Signed) Final Date: 22 Feb 2023 17:39
[2023-02-22] MEDS ORDERED: DEXTROSE 50% SYRINGE 50 ML IVP PRN ×2 (21:38)
--- NOTE | 2023-02-22 21:41 | P.HPIM ---
History of Present Illness H&P Date: 02/22/23 Chief Complaint: Vomiting This is a 27-year-old patient, follows Dr. Francisco Desai. Patient is a boyfriend with 3 children as at home. Patient does wonder 2 marijuana joints a day. She is at out of the same. He status post being around the house and found the powder that she decided to snort. Patient became confused out of that. Does not remember. Remembers coming awake in the ambulance. Patient's boyfriend was trying to reach the patient. When she could not be reached he asked his aunt to going check on her. She was found unconscious in bed by the family member. Patient had complete respiratory arrest. Received 1 mg of Narcan IV with some improvement. An and gout EMS To give one more dose of IV Narcan. Patient then came awake and started answering questions. She claimed that this is first time she has noted this. Patient urine drug screen positive for cocaine and marijuana and heroin. This morning patient is feeling better. Boyfriend bedside. No chest pain. Had troponin positive. Review of systems: GEN.: Tired EYES: None HEENT: None NECK: None RESPIRATORY: None CARDIOVASCULAR: None GASTROINTESTINAL: None GENITOURINARY: None MUSCULOSKELETAL: None LYMPHATICS: None HEMATOLOGICAL: None PSYCHIATRY: None NEUROLOGICAL: Nonfocal Past medical history to include: Heart normal with Social history: Lives with her boyfriend and 4 children. One child is breast-feeding. Patient doesn't marijuana one or 2 joints a day. Denies alcohol. Physical examination: VITAL SIGNS: 98.7, 58, 16, 97/60, 100% room air GENERAL: BMI 21.2, sitting up in bed awake not in distress. EYES: Pupils equal. Conjunctiva normal. HEENT: External appearance of nose and ears normal, oral cavity grossly normal. NECK: JVD not raised; masses not palpable. HEART: First and second heart sounds are normal; no edema. LUNGS: Respiratory rate normal; clear to auscultation. ABDOMEN: Soft, nontender, liver spleen not palpable, no masses palpable. PSYCH: Alert and oriented x3; mood and affect normal. MUSCULOSKELETAL:No Clubbing/cyanosis;muscles-grossly intact NEUROLOGICAL: Cranial nerves grossly intact; no facial asymmetry, power and sensation grossly intact. LYMPHATICS: No lymph nodes palpable in the axilla and neck INVESTIGATIONS, reviewed in the clinical context: February 22: White count 7 hemoglobin 11 platelets 178 potassium 3.8 creatinine 0.57 February 21: White count 24.7 hemoglobin 12.9 platelets 213 potassium 4.6 creatinine 0.97. Glucose 246 Troponin I 0.052, 0.199, 0.164 Urine drug screen positive for opiates, cocaine, marijuana EKG tracing personally reviewed by me-normal sinus rhythm Chest x-ray film personally reviewed by me-unremarkable CT chest angiogram for PE: Negative for PE. Right upper lung groundglass obesity. 2-D echocardiogram: EF 55-60% Assessment and plan: -Acute respiratory arrest/depression from patient taking acute intake of heroin. Patient was given 2 mg of Narcan. Then patient became awake. Patient denies having done this before -Recreational marijuana use Patient counseled -Acute myocardial infarction type II from hemodynamic mismatch secondary to respiratory arrest. 2-D echocardiogram does not show any wall motion abnormality. Hydrate patient Watch for any arrhythmias. Telemetry. -Possible aspiration pneumonitis. Likely chemical. IV ceftriaxone -Leukocytosis, reactive from respiratory arrest -Hyperglycemia. No prior history of diabetes. Check glycosylated hemoglobin. Follow [facility]. Patient and her boyfriend was counseled extensively. Cardiology consulted. Telemetry. Activity as tolerated. Past Medical History Past Medical History: No Reported History Additional Past Medical History / Comment(s): Heart Murmur with History of Any Multi-Drug Resistant Organisms: None Reported Past Surgical History: No Surgical Hx Reported Additional Past Surgical History / Comment(s): D and C Past Anesthesia/Blood Transfusion Reactions: No Reported Reaction Past Psychological History: No Psychological Hx Reported Smoking Status: Never smoker Past Alcohol Use History: None Reported Past Drug Use History: Heroin, Marijuana Additional Drug Use History / Comment(s): one time heroin use preceding this admission. - Past Family History Mother Family Medical History: No Reported History Medications and Allergies Home Medications Medication Instructions Recorded Confirmed Type No Known Home Medications 02/21/23 02/21/23 History Allergies Allergy/AdvReac Type Severity Reaction Status Date / Time No Known Drug Allergies Allergy Unknown Verified 02/21/23 20:19 Physical Exam Vitals: Vital Signs Temp Pulse Pulse Resp BP BP Pulse Ox 02/22/23 08:05 98.7 F 58 L 16 97/60 100 02/22/23 03:33 97.6 F 62 16 96/55 98 02/22/23 00:00 97.7 F 65 16 97/59 97 02/21/23 22:51 98.9 F 88 16 109/74 98 02/21/23 22:06 98.9 F 88 16 109/74 98 02/21/23 21:32 76 18 102/68 98 02/21/23 19:56 98.2 F 76 16 101/72 96 02/21/23 18:49 84 18 122/74 95 02/21/23 17:14 104 H 16 124/86 97 Intake and Output 02/21/23 02/22/23 02/22/23 22:59 06:59 14:59 Intake Total 1550 118 Balance 1550 118 Intake: Intake, IV Titration 1100 Amount Azithromycin 500 mg In 250 Sodium Chloride 0.9% 250 ml @ 250 mls/hr IVPB ONCE [facility] Rx#:[id number] Sodium Chloride 0.9% 1, 800 000 ml @ 130 mls/hr IV . Q7H42M [facility] Rx#:[id number] cefTRIAXone 2 gm In 50 Sodium Chloride 0.9% 50 ml @ 100 mls/hr IVPB Q24HR [facility] Rx#:[id number] Oral 450 118 Other: Voiding Method Toilet # Voids 2 # Bowel Movements 0 Weight 54.431 kg 56.1 kg Results CBC & Chem 7: 02/22/23 09:27 02/22/23 10:02 Labs: Abnormal Lab Results - Last 24 Hours (Table) 02/21/23 02/21/23 02/21/23 Range/Units 17:16 17:23 17:23 WBC 24.7 H (3.8-10.6) k/uL MCHC 30.8 L (31.0-37.0) g/dL Neutrophils # 22.1 H (1.3-7.7) k/uL APTT 20.4 L (22.0-30.0) sec Carbon Dioxide (22-30) mmol/L Glucose (74-99) mg/dL POC Glucose (mg/dL) 236 H (70-110) mg/dL Calcium (8.4-10.2) mg/dL Troponin I (0.000-0.034) ng/mL Ur Specific [place] (1.001-1.035) Urine Protein (Negative) Urine Glucose (UA) (Negative) Urine Ketones (Negative) Urine Blood (Negative) Urine Nitrite (Negative) Urine Bacteria (None) /hpf Urine Mucus (None) /hpf Urine Opiates Screen (NotDetected) Urine Cocaine Screen (NotDetected) U Marijuana (THC) Screen (NotDetected) 02/21/23 02/21/23 02/21/23 Range/Units 17:23 17:23 21:50 WBC (3.8-10.6) k/uL MCHC (31.0-37.0) g/dL Neutrophils # (1.3-7.7) k/uL APTT (22.0-30.0) sec Carbon Dioxide 20 L (22-30) mmol/L Glucose 246 H (74-99) mg/dL POC Glucose (mg/dL) (70-110) mg/dL Calcium 8.3 L (8.4-10.2) mg/dL Troponin I 0.052 H* 0.199 H* (0.000-0.034) ng/mL Ur Specific [place] (1.001-1.035) Urine Protein (Negative) Urine Glucose (UA) (Negative) Urine Ketones (Negative) Urine Blood (Negative) Urine Nitrite (Negative) Urine Bacteria (None) /hpf Urine Mucus (None) /hpf Urine Opiates Screen (NotDetected) Urine Cocaine Screen (NotDetected) U Marijuana (THC) Screen (NotDetected) 02/21/23 02/22/23 Range/Units 23:31 03:22 WBC (3.8-10.6) k/uL MCHC (31.0-37.0) g/dL Neutrophils # (1.3-7.7) k/uL APTT (22.0-30.0) sec Carbon Dioxide (22-30) mmol/L Glucose (74-99) mg/dL POC Glucose (mg/dL) (70-110) mg/dL Calcium (8.4-10.2) mg/dL Troponin I 0.164 H* (0.000-0.034) ng/mL Ur Specific [place] >1.050 H (1.001-1.035) Urine Protein Trace H (Negative) Urine Glucose (UA) Trace H (Negative) Urine Ketones 1+ H (Negative) Urine Blood Trace H (Negative) Urine Nitrite Positive H (Negative) Urine Bacteria Rare H (None) /hpf Urine Mucus Rare H (None) /hpf Urine Opiates Screen Detected H (NotDetected) Urine Cocaine Screen Detected H (NotDetected) U Marijuana (THC) Screen Detected H (NotDetected) Thrombosis Risk Factor Assmnt - Choose All That Apply Any of the Below Risk Factors Present?: No Other Risk Factors: No Other congenital or acquired thrombophilia - If yes, enter type in comment: No Thrombosis Risk Factor Assessment Level: Very Low Risk
[2023-02-22] MEDS: INSULIN ASPART (NovoLOG) 100 UNIT/ML VIAL SQ SCH (22:11)
[2023-02-22 22:13] LABS: Glucose,Whole Blood 101 mg/dL (70-110)
[2023-02-23 06:12] LABS: Glucose,Whole Blood 105 mg/dL (70-110)
[2023-02-23] MEDS: INSULIN ASPART (NovoLOG) 100 UNIT/ML VIAL SQ SCH ×2 (06:22→12:06)
[2023-02-23 08:01] VITALS: TEMP 98.3
[2023-02-23] MEDS: ENOXAPARIN 40 MG/0.4 ML SYRINGE SQ SCH (08:12)
[2023-02-23 12:00] LABS: Glucose,Whole Blood 96 mg/dL (70-110)
[2023-02-23 12:28] VITALS: BP 104/70; PULSE 57; RESP 18
--- NOTE | 2023-02-23 13:47 | P.PN ---
Subjective Progress Note Date: 02/23/23 This is Khris Daniels NP, I'm dictating on behalf of Dr. Kennedy's H&P and A&P. Patient was interviewed and examined. Patient is a pleasant 27-year-old female who initially presented to the hospital in acute respiratory arrest with a drug overdose. We were consulted for evaluation of elevated troponins. These are likely secondary to the respiratory arrest, as it is unknown how long the patient was in respiratory arrest 4. We did an echocardiogram yesterday, which demonstrates the patient's ventricular function is normal, with no other noted abnormalities. Patient today reports that she feels okay. She is denying chest pain, shortness of breath, or heart palpitations. GENERAL: Well-appearing, well-nourished and in no acute distress. NECK: Supple without JVD or thyromegaly. LUNGS: Breath sounds clear to auscultation bilaterally. Respiration equal and unlabored. No wheezes, rales or rhonchi. HEART: Regular rate and rhythm without murmurs, rubs or gallops. S1 and S2 heard. EXTREMITIES: Normal range of motion, no edema. No clubbing or cyanosis. Peripheral pulses intact and strong. VITALS: Temp 98.3, pulse 63, respirations 16, blood pressure 106/69, O2 saturation 98% on room air TELEMETRY: Normal sinus rhythm LABS: Hemoglobin A1c 5.5, pro-calcitonin 0.37 IMPRESSION: 1. Opiate overdose 2. Status post Narcan administration 3. Elevated troponin PLAN: Heart function is normal, with no structural abnormalities. Troponin elevated secondary to respiratory arrest. No further recommendations from a cardiology standpoint. Objective - Vital Signs Vital signs: Vital Signs Temp 98.3 F 02/23/23 12:00 Pulse 57 L 02/23/23 12:00 Resp 18 02/23/23 12:00 BP 104/70 02/23/23 12:00 Pulse Ox 99 02/23/23 12:00 FiO2 Intake & Output 02/22/23 02/23/23 02/23/23 18:59 06:59 18:59 Intake Total 764 375 118 Balance 764 375 118 Intake: IV 410 Sodium Chloride 0.9% 1, 360 000 ml @ 130 mls/hr IV . Q7H42M [facility] Rx#:[id number] cefTRIAXone 2 gm In 50 Sodium Chloride 0.9% 50 ml @ 100 mls/hr IVPB Q24HR [facility] Rx#:[id number] Oral 354 375 118 Other: Voiding Method Toilet Toilet - Labs CBC & Chem 7: 02/22/23 09:27 02/22/23 10:02 Labs: Abnormal Lab Results - Last 24 Hours (Table) 02/23/23 Range/Units 09:33 Procalcitonin 0.37 H (0.02-0.09) ng/mL Microbiology - Last 24 Hours (Table) 02/21/23 21:05 Blood Culture - Preliminary Blood 02/21/23 20:50 Blood Culture - Preliminary Blood
--- NOTE | 2023-02-23 16:25 | P.DS ---
Providers Date of admission: 02/21/23 20:33 Expected date of discharge: 02/23/23 Attending physician: Vic Alcala Consults: 02/21/23 22:41 Consult Physician Routine Consulting Provider: Jared Rinaldi Consult Reason/Comments: elevated troponin Do you want consulting provider notified?: Yes Primary care physician: Francisco Desai [facility] Course: Chief Complaint: Vomiting This is a 27-year-old patient, follows Dr. Francisco Desia. Patient is a boyfriend with 3 children as at home. Patient does wonder 2 marijuana joints a day. She is at out of the same. He status post being around the house and found the powder that she decided to snort. Patient became confused out of that. Does not remember. Remembers coming awake in the ambulance. Patient's boyfriend was trying to reach the patient. When she could not be reached he asked his aunt to going check on her. She was found unconscious in bed by the family member. Patient had complete respiratory arrest. Received 1 mg of Narcan IV with some improvement. An and gout EMS To give one more dose of IV Narcan. Patient then came awake and started answering questions. She claimed that this is first time she has noted this. Patient urine drug screen positive for cocaine and marijuana and heroin. This morning patient is feeling better. Boyfriend bedside. No chest pain. Had troponin positive. February 23: Patient doing well. No nausea vomiting. Has been up and about. Patient's significant other counseled again about use of recreational drugs and significant consequences. Patient follow-up with cardiology in 2 weeks. Procalcitonin 0.37. Patient completed 3 more days of Ceftin for aspiration pneumonitis. Past medical history to include: Heart normal with Social history: Lives with her boyfriend and 4 children. One child is breast-feeding. Patient doesn't marijuana one or 2 joints a day. Denies alcohol. Physical examination: VITAL SIGNS: 30.3, 57, 18, 104/70, 99% GENERAL: Comfortable EYES: Pupils equal. Conjunctiva normal. HEENT: External appearance of nose and ears normal, oral cavity grossly normal. NECK: JVD not raised; masses not palpable. HEART: First and second heart sounds are normal; no edema. LUNGS: Respiratory rate normal; clear to auscultation. ABDOMEN: Soft, nontender, liver spleen not palpable, no masses palpable. PSYCH: Alert and oriented x3; mood and affect normal. INVESTIGATIONS, reviewed in the clinical context: February 23: Procalcitonin 0.37 February 22: White count 7 hemoglobin 11 platelets 178 potassium 3.8 creatinine 0.57 February 21: White count 24.7 hemoglobin 12.9 platelets 213 potassium 4.6 creatinine 0.97. Glucose 246 Troponin I 0.052, 0.199, 0.164 Urine drug screen positive for opiates, cocaine, marijuana EKG tracing personally reviewed by me-normal sinus rhythm Chest x-ray film personally reviewed by me-unremarkable CT chest angiogram for PE: Negative for PE. Right upper lung groundglass obesity. 2-D echocardiogram: EF 55-60% Assessment and plan: -Acute respiratory arrest/depression from patient taking acute intake of heroin. Patient was given 2 mg of Narcan. Then patient became awake. Patient denies having done this before -Recreational marijuana use Patient counseled -Acute myocardial infarction type II from hemodynamic mismatch secondary to respiratory arrest. 2-D echocardiogram does not show any wall motion abnormality. Seen by cardiology. -Possible aspiration pneumonitis. Likely chemical. IV ceftriaxone. Complete 3 days of Ceftin. -Leukocytosis, reactive from respiratory arrest -Hyperglycemia. . Reactive. Diabetes mellitus type 2 ruled out HbA1c 5.5 Disposition: Home Plan - Discharge Summary Discharge Rx Participant: No New Discharge Prescriptions: New cefUROXime axetiL [Ceftin] 500 mg PO BID #6 tab Discharge Medication List cefUROXime axetiL [Ceftin] 500 mg PO BID #6 tab 02/23/23 [Rx] Follow up Appointment(s)/Referral(s): Eliot Kennedy MD [STAFF PHYSICIAN] - 1 Week (please call the office to schedule your appt ) Francisco Desai MD [Primary Care Provider] - 1-2 days (please call the office to schedule your appt ) Patient Instructions/Handouts: Aspiration Pneumonia (DC) Discharge Disposition: HOME SELF-CARE
== END 2023-02-23 15:08 | disposition home or self-care (01) | DRG 816 ==
LOC: EC 17:08 → 3SCARD 20:33
PROVIDERS: ADMIT Hospitalist; ATTEND Hospitalist
DX: T40.1X1A Poisoning by heroin, accidental (unintentional), initial encounter (principal); I21.A1 Myocardial infarction type 2; J68.0 Bronchitis and pneumonitis due to chemicals, gases, fumes and vapors; R09.2 Respiratory arrest; F12.90 Cannabis use, unspecified, uncomplicated; N39.0 Urinary tract infection, site not specified; D72.829 Elevated white blood cell count, unspecified; R73.9 Hyperglycemia, unspecified; Z71.51 Drug abuse counseling and surveillance of drug abuser; Z71.52 Counseling for family member of drug abuser; Z28.310 Unvaccinated for COVID-19; Z79.899 Other long term (current) drug therapy
CPT/HCPCS: 36415; 71046; 71275; 80053; 80143; 80179; 80306; 80320; 81001; 81025; 83036; 84145; 84484; 85025; 85610; 85730; 87040; 87449; 93005; 93306; 96361; 96365; 96375; 99291